=== PATIENT | female | born 1945 | race Caucasian/White ===

== ENCOUNTER → 2016-04-12 | Outpatient (CLI) | payer MEDICARE ==
--- NOTE | 2016-04-14 08:13 | MM ---
Reason for exam: screening (asymptomatic). Last mammogram was performed 1 year ago. History: Patient is postmenopausal and has history of endometrial cancer at age 51. Family history of breast cancer in 2 maternal aunts, breast cancer in daughter at age 50, and breast cancer in maternal aunt at age 50. Physical Findings: A clinical breast exam by your physician is recommended on an annual basis and results should be correlated with mammographic findings. MG 3D Screening Mammo W/Cad Bilateral CC and MLO view(s) were taken. Prior study comparison: April 09, 2015, bilateral MG 3d screening mammo w/cad. September 03, 2014, right breast MG diagnostic mammo RT w CAD. February 06, 2014, bilateral MG screening mammo w CAD. February 05, 2013, bilateral digital screening mammo w/CAD. There are scattered fibroglandular densities. Nodularity upper outer quadrant right breast larger and new from older priors. ASSESSMENT: Incomplete: need additional imaging evaluation, BI-RAD 0 RECOMMENDATION: Special view mammogram and ultrasound of the right breast. [facility] will attempt to contact patient to return for supplemental views and ultrasound.
== END | disposition home or self-care (01) ==
LOC: RADMAMWWP 13:49
PROVIDERS: ATTEND Family Medicine
DX: Z12.31 Encounter for screening mammogram for malignant neoplasm of breast (principal); R92.2 Inconclusive mammogram
CPT/HCPCS: 77063; G0202

== ENCOUNTER → 2016-04-24 | Outpatient (CLI) | payer MEDICARE ==
--- NOTE | 2016-04-24 14:31 | USB ---
Reason for exam: additional evaluation requested from abnormal screening. History: Patient is postmenopausal and has history of endometrial cancer at age 51. Family history of breast cancer in 2 maternal aunts, breast cancer in daughter at age 50, and breast cancer in maternal aunt at age 50. US Breast Workup Limited RT Right breast ultrasound demonstrates a 0.5 x 0.4 x 0.5cm oval lesion too small to characterize at 10 o'clock. These results were verbally communicated with the patient and result sheet given to the patient on 04/24/16. ASSESSMENT: Probably benign, BI-RAD 3 RECOMMENDATION: Follow-up diagnostic mammogram of the right breast in 6 months.
--- NOTE | 2016-04-25 11:28 | MM ---
Reason for exam: additional evaluation requested from abnormal screening. Last mammogram was performed less than 1 month ago. History: Patient is postmenopausal and has history of endometrial cancer at age 51. Family history of breast cancer in 2 maternal aunts, breast cancer in daughter at age 50, and breast cancer in maternal aunt at age 50. Physical Findings: Nurse did not find any significant physical abnormalities on exam. MG 3D Work Up W/Cad RT LM view(s) were taken of the right breast. Prior study comparison: April 12, 2016, bilateral MG 3d screening mammo w/cad. April 09, 2015, bilateral MG 3d screening mammo w/cad. Finding: There is a persistant 4 mm equal density (isodense), indistinct round mass in the right breast. No significant changes in finding. These results were verbally communicated with the patient and result sheet given to the patient on 04/24/16. ASSESSMENT: Incomplete: need additional imaging evaluation, BI-RAD 0 RECOMMENDATION: Ultrasound of the right breast.
== END | disposition home or self-care (01) ==
LOC: RADMAMWWP 13:30
PROVIDERS: ATTEND Family Medicine
DX: R92.8 Other abnormal and inconclusive findings on diagnostic imaging of breast (principal)
CPT/HCPCS: 76642; G0206; G0279

== ENCOUNTER → 2016-11-14 | Outpatient (CLI) | payer MEDICARE ==
--- NOTE | 2016-11-14 13:14 | MM ---
Reason for exam: follow-up at short interval from prior study. Last mammogram was performed 7 months ago. History: Patient is postmenopausal and has history of endometrial cancer at age 51. Family history of breast cancer in 2 maternal aunts, breast cancer in daughter at age 50, and breast cancer in maternal aunt at age 50. Physical Findings: Nurse did not find any significant physical abnormalities on exam. MG 3D Diag Mammo W/Cad RT CC and MLO view(s) were taken of the right breast. Prior study comparison: April 24, 2016, right breast MG 3d work up w/cad RT. April 12, 2016, bilateral MG 3d screening mammo w/cad. The breast tissue is almost entirely fat. Nodule persists in the right breast upper outer quadrant 6.6cm from nipple. This finding is changed when compared with previous exams. These results were verbally communicated with the patient and result sheet given to the patient on 11/14/16. ASSESSMENT: Incomplete: need additional imaging evaluation, BI-RAD 0 RECOMMENDATION: Ultrasound of the right breast.
--- NOTE | 2016-11-14 13:16 | USB ---
Reason for exam: additional evaluation requested from abnormal screening. History: Patient is postmenopausal and has history of endometrial cancer at age 51. Family history of breast cancer in 2 maternal aunts, breast cancer in daughter at age 50, and breast cancer in maternal aunt at age 50. US Breast Limited RT Right breast ultrasound demonstrates a 6 x 5 x 5mm oval, solid, hypoechoic lesion at 11 o'clock. These results were verbally communicated with the patient and result sheet given to the patient on 11/14/16. ASSESSMENT: Suspicious, BI-RAD 4 RECOMMENDATION: Ultrasound core biopsy of the right breast. (11 o'clock) Called Dr. Ruby with mammographic findings and has scheduled an appointment for the patient for 12/07/16 at 10:[address] Wood. Biopsy scheduled for 11/20/16 at 8:00. PRELIMINARY REPORT CALLED AND FAXED TO DR. WOOD ON 11/14/16 /TP.
== END | disposition home or self-care (01) ==
LOC: RADMAMWWP 10:51
PROVIDERS: ATTEND Family Medicine
DX: R92.8 Other abnormal and inconclusive findings on diagnostic imaging of breast (principal)
CPT/HCPCS: 76642; G0206; G0279

== ENCOUNTER → 2016-11-20 | Day surgery (SDC) | payer MEDICARE ==
--- NOTE | 2016-11-20 08:55 | USB ---
EXAMINATION TYPE: US biopsy breast VAD RT DATE OF EXAM: 11/20/2016 CLINICAL HISTORY: R92.8 ABNORMAL MAMMOGRAM. TECHNIQUE: Ultrasound guided core biopsy of right breast. COMPARISON: Ultrasound 11/14/2016 FINDINGS: The procedure of ultrasound guided core biopsy was explained to the patient. Benefits, alternatives, and risks were discussed. An informed consent was then obtained. The patient was placed in supine positioning for imaging and for the procedure. The overlying skin was prepped and draped in usual sterile fashion. Lidocaine was used as anesthetic into the skin and subcutaneous tissue up to area of concern in the right breast. A anna was made with surgical scalpel. Under ultrasound guidance, a 12-gauge vacuum assisted biopsy gun device was used to obtain 5 core samples. Following this, a biopsy clip was left in lesion. The patient tolerated the procedure well without any immediate complication. The patient was kept in the radiology department for short stay after the procedure and then discharged home in stable condition. IMPRESSION: Successful, uncomplicated ultrasound guided core biopsy of area of concern in the right breast, full pathology results to follow. Pathology Results: High Risk BREAST, RIGHT, CORE BIOPSY: FOCAL ATYPICAL DUCTAL HYPERPLASIA (ADH). PROLIFERATIVE FIBROCYSTIC CHANGES INCLUDING SCLEROSING ADENOSIS, USUAL TYPE DUCTAL HYPERPLASIA, AND FOCAL FAT NECROSIS WITH FIBROSIS AND CALCIFICATIONS. SEE NOTE. Recommendation Surgical consult of the right breast. GERTRUDE
--- NOTE | 2016-11-20 08:57 | MM ---
EXAMINATION TYPE: MG diagnostic mammo RT wo CAD DATE OF EXAM: 11/20/2016 COMPARISON: 09/03/2014, 11/14/2016 HISTORY: Abnormal mammogram TECHNIQUE: 2 view right breast postultrasound biopsy FINDINGS: Clip is in place within the right breast in the upper outer anterior aspect. IMPRESSION: 1. Successful clip placement for ultrasound-guided core biopsy. Recommendations: 1. Recommendations are pending pathology results.
[2016-11-22 08:53] VITALS: RESP 16; BMI 41.5
[2016-11-22 09:01] VITALS: BP 129/64; PULSE 71; TEMP 98.3
== END ==
LOC: RADUSWWP 06:58
PROVIDERS: ATTEND Surgery
DX: N60.91 Unspecified benign mammary dysplasia of right breast (principal); R92.8 Other abnormal and inconclusive findings on diagnostic imaging of breast; R92.0 Mammographic microcalcification found on diagnostic imaging of breast; N60.21 Fibroadenosis of right breast; Z85.42 Personal history of malignant neoplasm of other parts of uterus; N60.31 Fibrosclerosis of right breast
CPT/HCPCS: 88305; 88342; 19083; G0206; A4648; J2001

== ENCOUNTER → 2017-05-14 | Day surgery (SDC) | payer MEDICARE ==
[2017-05-07 09:55] VITALS: BMI 39.8
[~2017-05-14] MED LIST: ALPRAZolam 0.25 MG TAB PO STA; BUPIVACAINE (PF) 0.25% 30 ML VIAL SQ ONE; HEPARIN SODIUM,PORCINE 5,000 UNIT/ML 1 ML VIAL SQ ONE; HYDROcodone/APAP 5-325MG 1 EACH TAB PO PRN; HYDROmorphone 0.5 MG/0.5 ML SYRINGE IVP PRN; LACTATED RINGERS 1,000 ML IV SCH; LIDOCAINE 1% 20 ML VIAL (10MG/ML) FOR IV START INTRADERMA PRN; LIDOCAINE 1% INJ 10MG/ML (20 ML MDV) ONE; LIDOCAINE 1% INJ 10MG/ML (20 ML MDV) SQ ONE; MIDAZOLAM 2 MG/2 ML VIAL ONE; NALOXONE 0.4 MG/ML 1 ML VIAL IV PRN; ONDANSETRON 4 MG/2 ML VIAL IVP ONE; PROPOFOL 10 MG/ML 20 ML VIAL IV ONE; Pre Op ABX Message 1 EACH MISC MISCELLANE ONE; SODIUM BICARB 4% 5 ML VIAL (0.48 MEQ/ML) MISCELLANE ONE; fentaNYL (PF) 50 MCG/ML 2 ML AMP ONE
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
[2017-05-14 09:32] LABS: Glucose,Whole Blood 130 mg/dL (75-99)
[2017-05-14 09:38] VITALS: RESP 16; TEMP 97.8
--- NOTE | 2017-05-14 12:30 | P.OP ---
Date of Procedure: 05/14/17 Procedure(s) Performed: PREOPERATIVE DIAGNOSIS: Abnormal right mammogram POSTOPERATIVE DIAGNOSIS: Same PROCEDURE: Right Breast wire localization biopsy SURGEON: Nina EBL: Minimal ANESTHESIA: Sedation plus local COMPLICATIONS: None OPERATIVE PROCEDURE: Patient was placed on the operating room table in the supine position. The patient's breast was prepped and draped in usual sterile fashion. A curvilinear incision was made adjacent to the wire entrance site. I followed the wire down into the breast tissue. The breast tissue around the tip of the wire was fully excised using electrocautery. The specimen was sent for specimen radiogram. The clip was present within the specimen. The subcutaneous tissues were inspected. No bleeding was seen. The subcutaneous tissues were closed using 3-0 Vicryl sutures. The skin was closed using a running 4-0 Monocryl stitch. Steri-Strips and sterile dressings were applied. DISPOSITION: Stable to recovery room
[2017-05-14 12:50] LABS: Glucose,Whole Blood 149 mg/dL (75-99)
[2017-05-14 12:52] VITALS: BP 165/87; PULSE 60
--- NOTE | 2017-05-14 18:15 | MM ---
EXAMINATION TYPE: MG pre op needle loc RT, MG surgical specimen RT DATE OF EXAM: 05/14/2017 COMPARISON: 11/20/2016 CLINICAL HISTORY: 71-year-old female referred for wire placement for excision of biopsy-proven ADH in the right breast. TECHNIQUE: Needle localization with wire placement and surgical excision of area of concern in the right breast. FINDINGS: The procedure of needle localization with wire placement and than surgical excision was explained to the patient. Benefits, alternatives, and risks were discussed. An informed consent was then obtained. The shortest pathway for procedure was chosen. Shortest pathway was a superior approach. The overlying skin was prepped and draped in usual sterile fashion. Lidocaine buffered with bicarbonate was used as anesthetic into the skin and subcutaneous tissue up to the level of area of concern. A 5 cm Kopan's needle was used. It was placed via a CC from above approach under mammographic guidance. Subsequent 90 degrees mammogram show the needle to be in satisfactory position relative to the targeted area. At this point, wire was placed and the needle was withdrawn. The wire was fixed to patient's skin. Images were marked for surgeon. The patient tolerated the procedure well without any immediate complication. The patient was kept in the radiology department for short stay after the procedure and then taken to surgery for surgical excision. The wire, microclip, and incidental 2 groups of additional microcalcifications are identified in specimen mammogram. The patient was kept in hospital for short stay after the procedure and then discharged home in stable condition. IMPRESSION: Successful, uncomplicated needle localization with wire placement and surgical excision of biopsy-proven ADH in the right breast, full pathology results to follow. Pathology Results: Malignant BREAST, RIGHT, NEEDLE LOCALIZATION EXCISION: DUCTAL CARCINOMA IN SITU (DCIS) FOCALLY INVOLVING THE RESECTION MARGIN. SEE SURGICAL PATHOLOGY CANCER CASE SUMMARY AND COMMENT. Recommendation Surgical consult of the right breast. GERTRUDE
== END ==
LOC: OR 08:34
PROVIDERS: ATTEND Surgery
DX: D05.11 Intraductal carcinoma in situ of right breast (principal); Z80.3 Family history of malignant neoplasm of breast; K21.9 Gastro-esophageal reflux disease without esophagitis; E78.5 Hyperlipidemia, unspecified; I10 Essential (primary) hypertension; M19.90 Unspecified osteoarthritis, unspecified site; N28.9 Disorder of kidney and ureter, unspecified; E11.42 Type 2 diabetes mellitus with diabetic polyneuropathy; M10.9 Gout, unspecified; J30.2 Other seasonal allergic rhinitis; D64.9 Anemia, unspecified; Z85.42 Personal history of malignant neoplasm of other parts of uterus; Z92.3 Personal history of irradiation; Z79.84 Long term (current) use of oral hypoglycemic drugs; Z79.82 Long term (current) use of aspirin; Z79.899 Other long term (current) drug therapy; Z88.5 Allergy status to narcotic agent; Z87.891 Personal history of nicotine dependence
CPT/HCPCS: 19125; 88342; 88307; 88341; 76098; 19281; J2250; J1644; J2405; J2001; J3010; J2704

== ENCOUNTER 2017-06-08 08:47 | Day surgery (SDC) | payer MEDICARE ==
[2017-06-06 13:07] VITALS: BMI 41.1
[~2017-06-08 08:47] MED LIST changes: -ALPRAZolam 0.25 MG TAB PO STA; -BUPIVACAINE (PF) 0.25% 30 ML VIAL SQ ONE; +DEXAMETHASONE SOD PHOSPHATE 10 MG/ML 1 ML VIAL IV ONE; -HYDROcodone/APAP 5-325MG 1 EACH TAB PO PRN; -HYDROmorphone 0.5 MG/0.5 ML SYRINGE IVP PRN; -LIDOCAINE 1% 20 ML VIAL (10MG/ML) FOR IV START INTRADERMA PRN; -LIDOCAINE 1% INJ 10MG/ML (20 ML MDV) ONE; -LIDOCAINE 1% INJ 10MG/ML (20 ML MDV) SQ ONE; +MIDAZOLAM 2 MG/2 ML VIAL IV PRN; -MIDAZOLAM 2 MG/2 ML VIAL ONE; +MORPHINE SULFATE 4 MG/ML SYRINGE IV PRN; -NALOXONE 0.4 MG/ML 1 ML VIAL IV PRN; -PROPOFOL 10 MG/ML 20 ML VIAL IV ONE; -SODIUM BICARB 4% 5 ML VIAL (0.48 MEQ/ML) MISCELLANE ONE; -fentaNYL (PF) 50 MCG/ML 2 ML AMP ONE
[2017-06-08 10:09] LABS: Glucose,Whole Blood 111 mg/dL (75-99)
[2017-06-08] MEDS ORDERED: LIDOCAINE 1% 20 ML VIAL (10MG/ML) FOR IV START INTRADERMA ONE (10:25)
[2017-06-08 10:31] LABS: Anisocytosis Slight; HCT 39.1 % (34.0-46.0); HGB 13.1 gm/dL (11.4-16.0); MCH 29.4 pg (25.0-35.0); MCHC 33.5 g/dL (31.0-37.0); Mean Platelet Volume 9.8; Platelet Count 195 k/uL (150-450); RBC 4.47 m/uL (3.80-5.40); RDW 16.4 % (11.5-15.5); WBC 11.6 k/uL (3.8-10.6)
[2017-06-08 10:36] LABS: MCV 87.7 fL (80.0-100.0)
[2017-06-08 10:39] LABS: Potassium 4.1 mmol/L (3.5-5.1)
[2017-06-08] MEDS ORDERED: SUCCINYLCHOLINE CHLORIDE 100 MG/5 ML SYR IV ONE (10:51)
[2017-06-08] MEDS ORDERED: LIDOCAINE 1% INJ 10MG/ML (20 ML MDV) ONE (10:51)
[2017-06-08] MEDS ORDERED: fentaNYL (PF) 50 MCG/ML 2 ML AMP ONE (10:51)
[2017-06-08] MEDS ORDERED: PROPOFOL 10 MG/ML 20 ML VIAL IV ONE (10:51)
[2017-06-08] MEDS ORDERED: MIDAZOLAM 2 MG/2 ML VIAL ONE (10:51)
[2017-06-08] MEDS ORDERED: BUPIVACAINE (PF) 0.25% 30 ML VIAL SQ ONE ×2 (11:03)
[2017-06-08] MEDS ORDERED: SODIUM CHLORIDE 0.9% 150 ML with ceFAZolin 3,000 MG IV ONE ×2 (11:14)
[2017-06-08 11:57] VITALS: TEMP 97.2
[2017-06-08] MEDS ORDERED: NALOXONE 0.4 MG/ML 1 ML VIAL IV PRN (12:01)
--- NOTE | 2017-06-08 12:03 | P.OP ---
Date of Procedure: 06/08/17 Procedure(s) Performed: PREOPERATIVE DIAGNOSIS: Right breast cancer POSTOPERATIVE DIAGNOSIS: Same PROCEDURE: Right Breast lumpectomy SURGEON: Nina EBL: Minimal ANESTHESIA: General COMPLICATIONS: None OPERATIVE PROCEDURE: Patient was placed on the operating room table in the supine position. The breast was prepped and draped in usual sterile fashion. The previous incision at the 9 to 10:00 location was re-excise and dissection through the subcutaneous tissues of the breast took place using electrocautery. The previous lumpectomy site was fully excised with a margin of approximately 1 cm circumferentially. At one location inferior and laterally I did enter into the seroma cavity. The specimen was painted the appropriate colors. The subcutaneous tissues were closed using 3-0 Vicryl sutures. The skin was closed using a running 4-0 Monocryl stitch. Steri-Strips and sterile dressings were applied. DISPOSITION: Stable to recovery room
[2017-06-08 12:20] LABS: Glucose,Whole Blood 130 mg/dL (75-99)
[2017-06-08 12:48] VITALS: RESP 18
[2017-06-08 13:05] VITALS: BP 128/72; PULSE 80
== END 2017-06-08 13:24 | disposition home or self-care (01) ==
LOC: OR 08:47
PROVIDERS: ATTEND Surgery
DX: C50.411 Malignant neoplasm of upper-outer quadrant of right female breast (principal); I10 Essential (primary) hypertension; E11.9 Type 2 diabetes mellitus without complications; N28.9 Disorder of kidney and ureter, unspecified; R94.31 Abnormal electrocardiogram [ECG] [EKG]; E78.5 Hyperlipidemia, unspecified; G47.33 Obstructive sleep apnea (adult) (pediatric); Z99.89 Dependence on other enabling machines and devices; M10.9 Gout, unspecified; K21.9 Gastro-esophageal reflux disease without esophagitis; Z79.84 Long term (current) use of oral hypoglycemic drugs; Z79.82 Long term (current) use of aspirin; Z79.891 Long term (current) use of opiate analgesic; Z79.899 Other long term (current) drug therapy; Z79.2 Long term (current) use of antibiotics; Z88.5 Allergy status to narcotic agent; Z98.84 Bariatric surgery status
CPT/HCPCS: 19301; 82565; 84132; 84520; 85027; 88342; 88307; 88341; J2250; J1644; J1100; J2405; J2001; J3010; J0690; J0330; J2704

== ENCOUNTER → 2017-10-08 | Outpatient (CLI) | payer MEDICARE ==
[2017-10-08 15:14] LABS: Anisocytosis Slight; Basophils # (A) 0.1 k/uL (0-0.2); Basophils % (A) 1 %; Eosinophils # (A) 0.3 k/uL (0-0.7); Eosinophils % (A) 4 %; HCT 42.1 % (34.0-46.0); HGB 13.4 gm/dL (11.4-16.0); Hypochromasia Slight; Lymphocytes # (A) 1.2 k/uL (1.0-4.8); Lymphocytes % (A) 13 %; MCH 28.9 pg (25.0-35.0); MCHC 31.9 g/dL (31.0-37.0); MCV 90.6 fL (80.0-100.0); Mean Platelet Volume 8.9; Monocytes # (A) 0.6 k/uL (0-1.0); Monocytes % (A) 7 %; Neutrophils # (A) 6.8 k/uL (1.3-7.7); Neutrophils % (A) 74 %; Platelet Count 196 k/uL (150-450); RBC 4.64 m/uL (3.80-5.40); RDW 16.8 % (11.5-15.5); WBC 9.1 k/uL (3.8-10.6)
[2017-10-08 15:26] LABS: Albumin 3.7 g/dL (3.5-5.0); Calcium 9.7 mg/dL (8.4-10.2); Potassium 5.3 mmol/L (3.5-5.1); Total Bilirubin 0.3 mg/dL (0.2-1.3); Total Protein 6.8 g/dL (6.3-8.2)
[2017-10-09 01:27] LABS: Cyclic Citrullinated Pep IgG NEGATIVE (NEGATIVE)
[2017-10-09 02:53] LABS: HIV AB P24 Non-Reactive (Non-Reactive); HIV P24 AG Non-Reactive (Non-Reactive)
[2017-10-09 04:36] LABS: Angiotensin-1 Converting Enz. 94 U/L (8-52)
[2017-10-09 06:48] LABS: Toxoplasma Antibody (IgG) <3.0 IU/mL (<7.2); Toxoplasma Antibody (IgM) <3.0 AU/mL (<8.0)
[2017-10-09 12:32] LABS: APTT 42 Sec(s) (<43); Dilute Russell Viper Venom 44 Sec(s) (<44)
== END | disposition home or self-care (01) ==
LOC: LABWHC1 13:42
PROVIDERS: ATTEND Ophthalmology Retina Specialist
DX: H20.019 Primary iridocyclitis, unspecified eye (principal)
CPT/HCPCS: 36415; 80053; 82164; 85025; 85549; 85613; 85730; 86200; 86480; 86682; 86777; 86778; 86780; 87390

== ENCOUNTER → 2017-11-08 | Outpatient (CLI) | payer MEDICARE ==
--- NOTE | 2017-11-08 14:52 | CT ---
EXAMINATION TYPE: CT chest wo con DATE OF EXAM: 11/08/2017 COMPARISON: 06/05/2011 HISTORY: Pneumonitis. CT DLP: 668.5 mGycm. Automated Exposure Control for Dose Reduction was Utilized. TECHNIQUE: CT scan of the thorax is performed without IV contrast. FINDINGS: LUNGS: There is mild background centrilobular emphysematous change. Within the right upper lobe there is an approximately 2.3 cm pulmonary mass containing calcifications and macroscopic fat, similar to the prior of 2011 where this measured 2.2 cm most compatible with a benign hamartoma. Additionally th ere is a similar appearing right middle lobe 9 mm nodule in comparison to exam of 2012. Therefore thi s should also be considered benign. Lingular bronchiectasis and pleural parenchymal scarring are note d, which is most commonly postinfectious. Multifocal pleural parenchymal scarring is present. No foca l consolidation is seen. The tracheobronchial tree is patent. MEDIASTINUM: Lack of IV contrast is noted to limit evaluation for mediastinal and especially hilar ad enopathy. There are no definitive greater than 1 cm hilar or mediastinal lymph nodes. No cardiomega ly or pericardial effusion is seen. Ascending thoracic aorta is upper limits of normal measuring 4.0 cm on series 6 image 43. Moderate coronary artery and thoracic aortic calcifications are seen. OTHER: Right breast surgical excision changes are partially visualized. Gastric lap band with small h iatal hernia is noted. Left renal atrophy and nonobstructing lower pole calculus as well as mild panc reatic parenchymal atrophy are also present. Multilevel moderate degenerative changes of the spine ar e seen. Old healed sternal fracture is present of the sternal body. Degenerative articulation of the left transverse process with a left mid rib is seen on series 3 image 25. IMPRESSION: 1. Mild centrilobular emphysema. 2. Overall stable right pulmonary nodules dating back to 2011 the larger compatible with a benign ham artoma and the smaller given its stability should also be considered benign. 3. Lingular bronchiectasis and bandlike linear scarring, likely postinfectious. No obstructing endobr onchial masses seen. If there is further clinical concern bronchoscopy could be performed. 4. Postoperative changes of a right breast surgical excision/lumpectomy.
== END | disposition home or self-care (01) ==
LOC: RADCTMAIN 13:50
PROVIDERS: ATTEND Internal Medicine Rheumatology
DX: J43.2 Centrilobular emphysema (principal); R91.8 Other nonspecific abnormal finding of lung field; J47.9 Bronchiectasis, uncomplicated; J98.4 Other disorders of lung
CPT/HCPCS: 71250

== ENCOUNTER → 2017-11-15 | Outpatient (CLI) | payer MEDICARE ==
--- NOTE | 2017-11-15 14:03 | MM ---
Reason for exam: additional evaluation requested from prior study. Last mammogram was performed 1 year ago. History: Patient is postmenopausal, has history of breast cancer at age 71, has history of high-risk lesion on a previous biopsy at age 71, and has history of endometrial cancer at age 51. Family history of breast cancer in 2 maternal aunts, breast cancer in daughter at age 50, and breast cancer in maternal aunt at age 50. Lumpectomy of the right breast, June 08, 2017. 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 High risk US biopsy breast VAD RT of the right breast, November 20, 2016. Taking antineoplastic for 5 months. Physical Findings: Nurse did not find any significant physical abnormalities on exam. MG 3D Diag Mammo W/Cad JADIEL Bilateral CC and MLO view(s) were taken. Prior study comparison: November 20, 2016, right breast MG diagnostic mammo RT wo CAD. November 14, 2016, right breast MG 3d diag mammo w/cad RT. April 12, 2016, bilateral MG 3d screening mammo w/cad. There are scattered fibroglandular densities. There ar benign appearing bilateral calcifications. No suspicious abnormality. Post therapy changes on the right. These results were verbally communicated with the patient and result sheet given to the patient on 11/15/17. ASSESSMENT: Benign, BI-RAD 2 RECOMMENDATION: Follow-up diagnostic mammogram of both breasts in 1 year.
== END | disposition home or self-care (01) ==
LOC: RADMAMWWP 12:38
PROVIDERS: ATTEND Radiology Radiation Oncology
DX: C50.411 Malignant neoplasm of upper-outer quadrant of right female breast (principal)
CPT/HCPCS: 77066; G0279; 77062

== ENCOUNTER → 2017-12-18 | Outpatient (CLI) | payer MEDICARE ==
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
== END | disposition home or self-care (01) ==
LOC: RADBDWWP 12:53
PROVIDERS: ATTEND Internal Medicine Hematology & Oncology
DX: M85.80 Other specified disorders of bone density and structure, unspecified site (principal); C50.411 Malignant neoplasm of upper-outer quadrant of right female breast; N95.1 Menopausal and female climacteric states; Z79.890 Hormone replacement therapy; Z88.5 Allergy status to narcotic agent
CPT/HCPCS: 77080

== ENCOUNTER 2018-01-28 17:10 | Emergency (ER) | payer MEDICARE ==
[2018-01-28 17:20] VITALS: RESP 18
[2018-01-28] MEDS ORDERED: HYDROmorphone 1 MG/ML 1 ML SYRINGE IM STA (18:09)
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
--- NOTE | 2018-01-28 20:09 | XR ---
PROCEDURE: XR shoulder complete LT 3V DATE AND TIME: 01/28/2018 6:31 PM CLINICAL INDICATION: Pain TECHNIQUE: Department protocol. 3V COMPARISON: None FINDINGS: There is a displaced left humeral neck fracture with the humeral shaft displaced anteriorly and inferiorly medially. The humeral head appears rotated, but remains seated within the glenoid fossa. The acromioclavicular joint is congruent. Remaining visualized structures are unremarkable. IMPRESSION: DISPLACED LEFT HUMERAL NECK FRACTURE.
[2018-01-28 20:55] VITALS: BP 137/71; PULSE 88; TEMP 98.1
== END 2018-01-28 20:50 | disposition home or self-care (01) ==
LOC: EC 17:10
DX: S42.292A Other displaced fracture of upper end of left humerus, initial encounter for closed fracture (principal); E11.40 Type 2 diabetes mellitus with diabetic neuropathy, unspecified; K21.9 Gastro-esophageal reflux disease without esophagitis; E78.5 Hyperlipidemia, unspecified; I10 Essential (primary) hypertension; M19.90 Unspecified osteoarthritis, unspecified site; D64.9 Anemia, unspecified; M10.9 Gout, unspecified; Z85.42 Personal history of malignant neoplasm of other parts of uterus; Z87.891 Personal history of nicotine dependence; Z79.84 Long term (current) use of oral hypoglycemic drugs; Z79.82 Long term (current) use of aspirin; Z79.899 Other long term (current) drug therapy; Z88.5 Allergy status to narcotic agent; Z96.653 Presence of artificial knee joint, bilateral; W19.XXXA Unspecified fall, initial encounter
CPT/HCPCS: 73030; 99283; 96372; J1170

== ENCOUNTER → 2018-12-20 | Outpatient (CLI) | payer MEDICARE ==
--- NOTE | 2018-12-20 13:33 | MM ---
Reason for exam: additional evaluation requested from prior study. Last mammogram was performed 1 year and 1 month ago. History: Patient is postmenopausal, has history of breast cancer at age 71, has history of high-risk lesion on a previous biopsy at age 71, and has history of endometrial cancer at age 51. Family history of breast cancer in 2 maternal aunts at age 70, breast cancer in daughter at age 50, and breast cancer in maternal aunt at age 50. Lumpectomy of the right breast, June 08, 2017. 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 High risk US biopsy breast VAD RT of the right breast, November 20, 2016. Taking antineoplastic for 1 year 6 months. Physical Findings: Nurse did not find any significant physical abnormalities on exam. MG 3D Diag Mammo W/Cad JADIEL Bilateral CC and MLO view(s) were taken. XCCL view(s) were taken of the left breast. Prior study comparison: November 15, 2017, bilateral MG 3d diag mammo w/cad JADIEL. November 20, 2016, right breast MG diagnostic mammo RT wo CAD. There are scattered fibroglandular densities. Finding: There is an intermediate concern, suspicious 21 mm high density, indistinct mass located 6 cm from the nipple in the middle position of the right breast. New finding since November 15, 2017 and November 20, 2016. These results were verbally communicated with the patient and result sheet given to the patient on 12/20/18. ASSESSMENT: Incomplete: need additional imaging evaluation, BI-RAD 0 RECOMMENDATION: Ultrasound of the right breast.
--- NOTE | 2018-12-20 13:39 | USB ---
Reason for exam: additional evaluation requested from abnormal screening. History: Patient is postmenopausal, has history of breast cancer at age 71, has history of high-risk lesion on a previous biopsy at age 71, and has history of endometrial cancer at age 51. Family history of breast cancer in 2 maternal aunts at age 70, breast cancer in daughter at age 50, and breast cancer in maternal aunt at age 50. Lumpectomy of the right breast, June 08, 2017. 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 High risk US biopsy breast VAD RT of the right breast, November 20, 2016. Taking antineoplastic for 1 year 6 months. US Breast Limited RT Right limited breast ultrasound including focal area of concern, retroareolar and axilla demonstrates a 2.3 x 2.3 x 1.7cm oval, cystic, complex lesion at 10 o'clock, a 0.8 x 0.6 x 0.7cm oval, thick walled lesion at 10:30 and a 1.8 x 1.1 x 1.3cm oval axilla node. These are adjacent. Core smaller lesion, can core/aspirate larger lesion at same time. These results were verbally communicated with the patient and result sheet given to the patient on 12/20/18. ASSESSMENT: Suspicious, BI-RAD 4 RECOMMENDATION: Aspiration and ultrasound core biopsy of the right breast. Called Dr. Monk with mammographic findings and has scheduled an appointment for the patient for 02/06/19 at 9:[address] Wood. Biopsy scheduled for 01/10/19 at 11:30. PRELIMINARY REPORT CALLED AND FAXED TO DR. WOOD ON 12/20/18.
== END | disposition home or self-care (01) ==
LOC: RADMAMWWP 10:47
PROVIDERS: ATTEND Radiology Radiation Oncology
DX: C50.411 Malignant neoplasm of upper-outer quadrant of right female breast (principal); R92.8 Other abnormal and inconclusive findings on diagnostic imaging of breast; Z17.0 Estrogen receptor positive status [ER+]
CPT/HCPCS: 77066; 76642; G0279; 77062

== ENCOUNTER → 2019-01-06 | Day surgery (SDC) | payer MEDICARE ==
[2019-01-06 13:23] VITALS: RESP 16; BMI 37.8
[2019-01-06 14:24] VITALS: BP 130/75; PULSE 70; TEMP 97.7
--- NOTE | 2019-01-06 14:50 | USB ---
EXAMINATION TYPE: US biopsy breast VAD RT, MG diagnostic mammo RT wo CAD DATE OF EXAM: 01/06/2019 CLINICAL HISTORY: R92.8 Abnormal mammogram. TECHNIQUE: Ultrasound guided core biopsy of the right breast. COMPARISON: right breast ultrasound dated 12/20/2018 and mammograms dating back to 04/09/2015 FINDINGS: The procedure of ultrasound guided core biopsy was explained to the patient. Benefits, alternatives, and risks were discussed. An informed consent was then obtained. Preprocedural timeout was performed. The patient was placed in supine positioning for imaging and for the procedure. The overlying skin was prepped and draped in usual sterile fashion. 10 cc of 1% lidocaine was used as anesthetic into the skin and subcutaneous tissue up to a complex cystic mass at the 10:00 position in the right breast. Under ultrasound guidance, a 12-gauge vacuum assisted biopsy gun device was used to obtain 7 core samples. A wing shaped biopsy marker was attempted to be placed however this did not deploy as no marker is seen on postprocedural images. Post biopsy air is noted within the biopsy cavity on postprocedural mammogram. The patient tolerated the procedure well without any immediate complication. The patient was kept in the radiology department for short stay after the procedure and then discharged home in stable condition. IMPRESSION: Successful, uncomplicated ultrasound guided core biopsy of a complex cystic 2.3 cm mass at the 10:00 position, likely postsurgical seroma/evolving hematoma, full pathology results to follow. Pathology Results: Benign RIGHT BREAST, 10:00, ULTRASOUND GUIDED CORE BIOPSY: Scar with fat necrosis, histiocytes, chronic inflammation, fibrin and blood clot. Negative for malignancy. Recommendation Follow up mammogram of the right breast in 6 months. GERTRUDE
== END ==
LOC: RADUSWWP 13:00
PROVIDERS: ATTEND Surgery
DX: N60.01 Solitary cyst of right breast (principal); Z85.3 Personal history of malignant neoplasm of breast; Z85.42 Personal history of malignant neoplasm of other parts of uterus; Z80.9 Family history of malignant neoplasm, unspecified
CPT/HCPCS: 19083; 88305; 77065; A4648; J2001

== ENCOUNTER → 2019-03-18 | Outpatient (CLI) | payer MEDICARE ==
--- NOTE | 2019-03-18 15:58 | US ---
EXAMINATION TYPE: US kidneys/renal and bladder DATE OF EXAM: 03/18/2019 COMPARISON: US CLINICAL HISTORY: N18.3 Chronic kidney disease stage 3. EXAM MEASUREMENTS: Right Kidney: 13.5 x 5.1 x 4.7 cm Left Kidney: 11.2 x 3.4 x 4.6 cm Right Kidney: Cortical thinning. Diminished cortical medullary differentiation. Multiple hypoechoic subcentimeter lesions, likely small cysts. Left Kidney: Thinned cortex. Diminished cortical medullary differentiation. Multiple hypoechoic subce ntimeter lesions, likely small cysts. Lower pole calcification measures 1.3 x 0.6 x 1.1 cm. Bladder: wnl Bilateral Jets seen: No IMPRESSION: Sonographic sequela of medical renal disease. There are numerous bilateral subcentimeter hypoechoic lesions that most commonly represent small cysts. No greater than 1 cm lesion is seen. Add itionally there is a nonobstructing left renal calculus and no hydronephrosis of either kidney.
== END | disposition home or self-care (01) ==
LOC: RADUSWWP 15:12
PROVIDERS: ATTEND Internal Medicine Nephrology
DX: N20.0 Calculus of kidney (principal)
CPT/HCPCS: 76770

== ENCOUNTER → 2019-09-26 | Outpatient (CLI) | payer MEDICARE ==
--- NOTE | 2019-09-26 14:49 | MM ---
Reason for exam: follow-up at short interval from prior study. Last mammogram was performed 9 months ago. History: Patient is postmenopausal, has history of breast cancer at age 71, has history of high-risk lesion on a previous biopsy at age 71, and has history of endometrial cancer at age 51. Family history of breast cancer in 2 maternal aunts at age 70, breast cancer in daughter at age 50, and breast cancer in maternal aunt at age 50. Benign US biopsy breast VAD RT of the right breast, January 06, 2019. Lumpectomy of the right breast, June 08, 2017. 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 High risk US biopsy breast VAD RT of the right breast, November 20, 2016. Taking antineoplastic for 1 year 6 months. Physical Findings: Nurse did not find any significant physical abnormalities on exam. MG 3D Diag Mammo W/Cad RT CC and MLO view(s) were taken of the right breast. Prior study comparison: January 06, 2019, right breast MG diagnostic mammo RT wo CAD. December 20, 2018, bilateral MG 3d diag mammo w/cad JADIEL. There are scattered fibroglandular densities. Focal asymmetry. Spiculated margina upper outer quadrant right breast. These results were verbally communicated with the patient and result sheet given to the patient on 09/26/19. ASSESSMENT: Benign, BI-RAD 2 RECOMMENDATION: Follow-up diagnostic mammogram of both breasts in 4 months. Back on schedule.
== END | disposition home or self-care (01) ==
LOC: RADMAMWWP 13:43
PROVIDERS: ATTEND Radiology Radiation Oncology
DX: C50.411 Malignant neoplasm of upper-outer quadrant of right female breast (principal); Z17.0 Estrogen receptor positive status [ER+]
CPT/HCPCS: 77065; G0279; 77061

== ENCOUNTER 2019-10-27 20:19 | Inpatient (IN) | payer MEDICARE ==
[2019-10-27 20:29] LABS: Glucose,Whole Blood 204 mg/dL (75-99)
[2019-10-27] MEDS ORDERED: SODIUM CHLORIDE 0.9% 500 ML 500 ML IV STA (20:29)
[2019-10-27 20:42] LABS: Anisocytosis Slight; Basophils # (A) 0.1 k/uL (0-0.2); Basophils % (A) 1 %; Eosinophils # (A) 0.5 k/uL (0-0.7); Eosinophils % (A) 4 %; HCT 41.2 % (34.0-46.0); HGB 13.6 gm/dL (11.4-16.0); Lymphocytes # (A) 1.4 k/uL (1.0-4.8); Lymphocytes % (A) 9 %; MCH 30.3 pg (25.0-35.0); MCHC 32.9 g/dL (31.0-37.0); Mean Platelet Volume 9.9; Monocytes # (A) 0.6 k/uL (0-1.0); Monocytes % (A) 4 %; Neutrophils # (A) 11.7 k/uL (1.3-7.7); Neutrophils % (A) 81 %; Platelet Count 148 k/uL (150-450); RBC 4.47 m/uL (3.80-5.40); RDW 16.6 % (11.5-15.5); WBC 14.4 k/uL (3.8-10.6)
[2019-10-27 20:46] LABS: MCV 92.2 fL (80.0-100.0)
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
[2019-10-27 20:51] LABS: Partial Thromboplastin Time 23.4 sec (22.0-30.0); Prothrombin Time 10.2 sec (9.0-12.0)
--- NOTE | 2019-10-27 20:52 | CT ---
EXAMINATION TYPE: CT brain wo con for TPA DATE OF EXAM: 10/27/2019 COMPARISON: None HISTORY: Neuro deficit, acute, stroke suspected. CT DLP: 1102.8 mGycm Automated exposure control for dose reduction was used. Ventricles have normal size. There is no mass effect nor midline shift. There is no sign of intracran ial hemorrhage. There is hyperostosis frontalis. There is limited pneumatization of the right mastoid sinus. The calvarium is intact. There is no evidence of cerebral edema. There is some symmetric thalamic calcification. IMPRESSION: No acute intracranial abnormality. Negative exam.
[2019-10-27 20:53] LABS: Creatine Kinase 60 U/L (30-135)
[2019-10-27 20:55] LABS: Albumin 3.7 g/dL (3.5-5.0); Calcium 9.1 mg/dL (8.4-10.2); Total Bilirubin 0.6 mg/dL (0.2-1.3); Total Protein 6.9 g/dL (6.3-8.2)
[2019-10-27 21:06] LABS: Creatine Kinase MB 0.4 ng/mL (0.0-2.4); Troponin I <0.012 ng/mL (0.000-0.034)
--- NOTE | 2019-10-27 21:17 | CT ---
EXAMINATION TYPE: CT angio head neck DATE OF EXAM: 10/27/2019 COMPARISON: None HISTORY: Neuro deficit, acute, stroke suspected. CT DLP: 545.7 mGycm Automated exposure control for dose reduction was used. CONTRAST: Performed with IV Contrast, patient injected with 65 mL of Isovue 370. Images obtained from the aortic arch to the vertex of the brain with IV contrast and 3-D post process ed images. There is normal branching pattern of the great vessels on the aortic arch. There is arterial flow in both subclavian arteries. There is arterial flow in the common internal and external carotid arteries . There is mild plaque formation at the carotid artery bifurcations. Lumen narrowing is less than 10% . There is arterial flow in both vertebral arteries. There is arterial flow in the vertebrobasilar ar cornel system. There is no evidence of vertebral or carotid artery aneurysm or dissection. There is arterial flow in the anterior middle and posterior cerebral arteries. There is no mass effec t. There is no evidence of intracranial arterial stenosis. There is normal contrast opacification of the venous sinuses. I see no evidence of intracranial aneurysm or neovascularity. The posterior cereb ral arteries appear to fill mostly through the posterior communicating arteries. There is diminutive basilar artery. IMPRESSION: Negative CT angiogram of the neck. Negative CT angiogram of the brain.
[2019-10-27] MEDS ORDERED: ASPIRIN 81 MG PO STA (21:26)
[2019-10-27] MEDS ORDERED: NALOXONE 0.4 MG/ML 1 ML VIAL IV STA (21:29)
--- NOTE | 2019-10-27 21:50 | XR ---
EXAMINATION TYPE: XR chest 1V portable DATE OF EXAM: 10/27/2019 COMPARISON: 06/01/2011 HISTORY: Altered mental status TECHNIQUE: Single view FINDINGS: There is no heart failure nor confluent pneumonic infiltrate. There is mild coarsening of i nterstitial markings. There is 2.4 cm nodular density above the right pulmonary hilum. This appears s table compared to CT chest of 11/08/2017 and could be a granuloma. This contains small area of calcific ation on the old CT scan. IMPRESSION: Mild fibrotic changes. No definite acute lung disease. No adverse change compared to old exam.
[2019-10-27 22:38] LABS: Ionized Calcium 4.9 mg/dL (4.5-5.3)
[2019-10-27 22:42] LABS: Acetaminophen <10.0 ug/mL; Alcohol <10 mg/dL; Magnesium 1.7 mg/dL (1.6-2.3); Salicylate <1.0 mg/dL
[2019-10-27] MEDS ORDERED: cefTRIAXone IN SWFI 1,000 MG/10 ML SYRINGE IVP STA (23:06)
[2019-10-27 23:10] LABS: Appearance,Urine Turbid (Clear); Bacteria,Urine Moderate /hpf; Bilirubin,Urine Negative (Negative); Blood,Urine Moderate (Negative); Color,Urine Yellow; Glucose,Urine (UA) Negative (Negative); Ketones,Urine Negative (Negative); Leukocyte Esterase,Urine Large (Negative); Mucus,Urine Occasional /hpf; Nitrite,Urine Positive (Negative); Protein,Urine 2+ (Negative); Urobilinogen,Urine <2.0 mg/dL (<2.0)
[2019-10-27 23:18] LABS: Amphetamine Screen,Urine Not Detected (NotDetected); Barbiturate Screen,Urine Not Detected (NotDetected); Benzodiazepines Screen,Urine Not Detected (NotDetected); Cocaine Screen,Urine Not Detected (NotDetected); Methadone Screen, Urine Not Detected (NotDetected); Opiate Screen,Urine Detected (NotDetected); Oxycodone Screen, Urine Not Detected (NotDetected); Phencyclidine Screen,Urine Not Detected (NotDetected); Tricyclic Antidepressant,Urine Not Detected (NotDetected); Urn Cannabinoid Scrn Not Detected (NotDetected)
[2019-10-27 23:19] LABS: RBC,Urine 113 /hpf (0-5); Specific Gravity,Urine 1.016 (1.001-1.035); WBC,Urine >182 /hpf (0-5)
[2019-10-27] MEDS ORDERED: ACETAMINOPHEN TAB 325 MG TAB PO PRN (23:21)
[2019-10-27] MEDS ORDERED: ASPIRIN 600 MG SUPP RECTAL STA (23:28)
[2019-10-27] MEDS: SODIUM CHLORIDE 0.9% 1,000 ML IV SCH (23:39)
[2019-10-28] MEDS: SODIUM CHLORIDE 0.9% 1,000 ML IV SCH ×2 (09:01→19:52)
[2019-10-28] MEDS: PANTOPRAZOLE 40 MG/10 ML VIAL IV SCH (09:01)
[2019-10-28 17:20] LABS: Glucose,Whole Blood 177 mg/dL (75-99)
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
[2019-10-28] MEDS: INSULIN ASPART (NovoLOG) 100 UNIT/ML VIAL SQ SCH ×2 (18:54→20:55)
[2019-10-28 20:16] LABS: Glucose,Whole Blood 185 mg/dL (75-99)
[2019-10-28] MEDS ORDERED: MELATONIN 5 MG TABLET PO PRN (22:57)
[2019-10-28] MEDS: ATORVASTATIN 80 MG TAB PO SCH (23:36)
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
[2019-10-29] MEDS: SODIUM CHLORIDE 0.9% 1,000 ML IV SCH ×3 (02:58→21:17)
[2019-10-29 06:13] LABS: Glucose,Whole Blood 153 mg/dL (75-99)
[2019-10-29] MEDS: INSULIN ASPART (NovoLOG) 100 UNIT/ML VIAL SQ SCH ×4 (06:30→20:41)
[2019-10-29 06:52] LABS: Anisocytosis Slight; Basophils # (A) 0.1 k/uL (0-0.2); Basophils % (A) 1 %; Eosinophils # (A) 0.4 k/uL (0-0.7); Eosinophils % (A) 3 %; HCT 41.6 % (34.0-46.0); HGB 13.1 gm/dL (11.4-16.0); Hypochromasia Slight; Lymphocytes # (A) 1.1 k/uL (1.0-4.8); Lymphocytes % (A) 9 %; MCH 29.1 pg (25.0-35.0); MCHC 31.4 g/dL (31.0-37.0); MCV 92.6 fL (80.0-100.0); Mean Platelet Volume 11.3; Monocytes # (A) 0.5 k/uL (0-1.0); Monocytes % (A) 4 %; Neutrophils # (A) 10.6 k/uL (1.3-7.7); Neutrophils % (A) 82 %; Platelet Count 126 k/uL (150-450); RBC 4.49 m/uL (3.80-5.40); RDW 16.7 % (11.5-15.5); WBC 12.9 k/uL (3.8-10.6)
[2019-10-29 07:17] LABS: T4, Free (Free Thyroxine) 0.92 ng/dL (0.78-2.19)
[2019-10-29 07:18] LABS: Potassium 4.4 mmol/L (3.5-5.1)
[2019-10-29] MEDS: GLIMEPIRIDE 2 MG TAB PO SCH ×2 (09:18→20:39)
[2019-10-29] MEDS: atenoloL 25 MG TAB PO SCH (09:18)
[2019-10-29] MEDS: LOSARTAN 25 MG TAB PO SCH (09:18)
[2019-10-29] MEDS: amLODIPine 10 MG TAB PO SCH (09:18)
[2019-10-29] MEDS: allopurinoL 100 MG TAB PO SCH ×2 (09:18→20:38)
[2019-10-29] MEDS: PANTOPRAZOLE 40 MG/10 ML VIAL IV SCH (09:19)
[2019-10-29] MEDS: ASPIRIN 81 MG PO SCH (09:19)
[2019-10-29] MEDS: prednisoLONE ACETATE 1% OPHTH DROPS 5 ML BTL RIGHT EYE SCH (09:21)
[2019-10-29] MEDS: Exemestane [Aromasin] 25 MG PO SCH (09:22)
--- NOTE | 2019-10-29 10:00 | ECHOF ---
Referral Reason:TIA MEASUREMENTS -------- HEIGHT: 160.0 cm WEIGHT: 77.6 kg BP: 167/72 IVSd: 0.9 cm (0.6 - 1.1) LVIDd: 3.9 cm (3.9 - 5.3) LVPWd: 1.0 cm (0.6 - 1.1) IVSs: 1.2 cm LVIDs: 2.6 cm LVPWs: 1.3 cm Ao Diam: 3.2 cm (2.0 - 3.7) AV Cusp: 1.2 cm (1.5 - 2.6) LA Diam: 3.7 cm (2.7 - 3.8) MV E Mak: 0.79 m/s MV DecT: 134 ms MV A Mak: 0.34 m/s MV E/A Ratio: 2.30 RAP: 5.00 mmHg RVSP: 10.99 mmHg FINDINGS -------- Sinus rhythm. This was a technically difficult study with suboptimal views. The left ventricular size is normal. Left ventricular wall thickness is normal. Overall left vent ricular systolic function is normal with, an EF between 55 - 60 %. The RV was not well visualized. The left atrial size is normal. The right atrium was not well visualized. Lumason used Unable to visualize the septum. The aortic valve was not well visualized. The mitral valve was not well visualized. There is trace mitral regurgitation. The tricuspid valve appears structurally normal. Trace tricuspid regurgitation present. Right yuri tricular systolic pressure is normal at < 35 mmHg. There is no pulmonic regurgitation present. The aortic root size is normal. IVC Not well visulized. There is no pericardial effusion. CONCLUSIONS -------- 1. Left ventricular wall thickness is normal. 2. Overall left ventricular systolic function is normal with, an EF between 55 - 60 %. 3. There is trace mitral regurgitation. 4. Trace tricuspid regurgitation present. DESIGN PRINTER BALLOON: Prisca Randall RDCS
[2019-10-29 11:42] LABS: Glucose,Whole Blood 157 mg/dL (75-99)
--- NOTE | 2019-10-29 14:48 | P.PN ---
Subjective Progress Note Date: 10/29/19 Patient is laying comfortably in the bed. Offers no new complaints. Denies headache. Denies any new focal symptoms. Patient is alert and awake. Objective - Vital Signs Vital signs: Vital Signs Temp 98.6 F 10/29/19 09:10 Pulse 74 10/29/19 11:30 Resp 16 10/29/19 11:30 BP 157/80 10/29/19 11:30 Pulse Ox 98 10/29/19 11:30 Intake & Output 10/28/19 10/29/19 10/29/19 18:59 06:59 18:59 Intake Total 1610 1030 930 Output Total 1999 1680 Balance -390 -650 930 Weight 108.862 kg 78 kg Intake: IV 880 880 Sodium Chloride 0.9% 1, 880 880 000 ml @ 110 mls/hr IV . Q9H6M [facility] Rx#:[id number] Intake, IV Titration 1370 50 Amount Sodium Chloride 0.9% 1, 1320 000 ml @ 110 mls/hr IV . Q9H6M [facility] Rx#:[id number] cefTRIAXone 1 gm In 50 50 Sodium Chloride 0.9% 50 ml @ 100 mls/hr IVPB Q24HR [facility] Rx#:[id number] Oral 240 150 Output: Urine 19990 Other: Voiding Method Indwelling Catheter Indwelling Catheter Indwelling Catheter # Voids 1 # Bowel Movements 1 - Exam Patient is slightly somnolent but is alert and awake. Speech is mildly dysarthric, no aphasia. Cranial nerves examination revealed chronically decreased vision in the right eye. Her visual macias are full on the left, with no neglect. Right pupil is nonreactive, left pupil is reactive. Both pupils are surgical. Extraocular muscles grossly intact. Face is symmetric and tongue protrudes the midline. On muscle strength testing, patient has mild left pronation, no drift. The strength appears normal in the arms and legs distally and proximally. Both lower limbs are completely normal. Reflexes are diminished and patient has withdrawal plantar reflex bilaterally. No ataxia for [id number] on the right. On the left side, was slow, but no more past- pointing as compared to yesterday. Sensations are equal bilaterally, no neglect. Gait deferred. - Labs CBC & Chem 7: 10/29/19 06:20 10/29/19 06:20 Labs: Abnormal Lab Results - Last 24 Hours (Table) 10/28/19 10/28/19 10/29/19 Range/Units 17:18 20:14 06:10 WBC (3.8-10.6) k/uL RDW (11.5-15.5) % Plt Count (150-450) k/uL Neutrophils # (1.3-7.7) k/uL Chloride (98-107) mmol/L Glucose (74-99) mg/dL POC Glucose (mg/dL) 177 H 185 H 153 H (75-99) mg/dL Triglycerides (<150) mg/dL HDL Cholesterol (40-60) mg/dL 10/29/19 10/29/19 10/29/19 Range/Units 06:20 06:20 11:39 WBC 12.9 H (3.8-10.6) k/uL RDW 16.7 H (11.5-15.5) % Plt Count 126 L (150-450) k/uL Neutrophils # 10.6 H (1.3-7.7) k/uL Chloride 109 H (98-107) mmol/L Glucose 160 H (74-99) mg/dL POC Glucose (mg/dL) 157 H (75-99) mg/dL Triglycerides 173 H (<150) mg/dL HDL Cholesterol 30 L (40-60) mg/dL Microbiology - Last 24 Hours (Table) 10/27/19 22:54 Blood Culture - Preliminary Blood No Growth after 24 hours 10/28/19 12:15 Urine Culture - Preliminary Urine,Catheterized Assessment and Plan Assessment: * Acute ischemic stroke bilateral thalami, extending to left mid brain region. Possible thromboembolism. No obvious embolic source identified. * Hypertension * Diabetes * X tobacco use * Obesity Plan: * MRI of the brain revealed subacute infarct in bilateral thalamus, right bigger than left, extending to the midbrain on the left. * We will add Plavix 75 mg and continue aspirin. * 2-D echo showed EF 55-60%, left ventricular wall thickness is normal. No obvious embolic source * CTA of head and neck showed no significant stenosis of the vertebrobasilar system. I again reviewed CTA of head and neck with Dr. Henderson, who agreed there is no significant stenosis. * Hemoglobin A1c pending, fasting lipid panel showed total cholesterol 96, LDL 31, HDL 30 and triglycerides 173. * Continue statins. * PT OT.
--- NOTE | 2019-10-29 14:57 | MR ---
MR brain without contrast HISTORY: Cerebral vascular accident, altered mental status multiplanar multisequence imaging through the brain Correlation CT brain 10/27/2019 There is restricted diffusion involving the right thalamus, there is increased signal also noted with in the left thalamus on diffusion weighted images and possibly extending into the midbrain, correspon ding hyperintensity noted on the CT, decreased signal present on the T1 data set, there is correspond ing hyperintensity present within the same distribution on inversion recovery and T2-weighted sequenc es. There is no evident hemorrhage or hydrocephalus. Scattered hyperintensities in the deep white mat ter on inversion recovery T2-weighted sequences are noted. There are normal vascular flow voids. Infl ammatory changes present in the right temporal bone, mastoid air cells. Cerebellopontine angles, brigid us callosum, pituitary, cervical medullary junction are within normal limits. Orbits show symmetric a ppearance. There is atrophy noted. IMPRESSION: Findings compatible with subacute infarct right thalamus and possibly left lobe of the AD C map shows a low signal. Age-related changes of atrophy and chronic small vessel ischemia. Inflammat ory changes right temporal bone, mastoid air cells.
[2019-10-29] MEDS: CLOPIDOGREL 75 MG TAB PO SCH (16:34)
[2019-10-29 17:02] LABS: Glucose,Whole Blood 192 mg/dL (75-99)
[2019-10-29 17:27] LABS: Hemoglobin A1C 7.9 % (4.0-6.0)
[2019-10-29 20:25] LABS: Glucose,Whole Blood 170 mg/dL (75-99)
[2019-10-29] MEDS: ATORVASTATIN 80 MG TAB PO SCH (20:38)
[2019-10-29] MEDS: BACLOFEN 10 MG TAB PO SCH (20:38)
[2019-10-30 05:55] LABS: Glucose,Whole Blood 179 mg/dL (75-99)
[2019-10-30] MEDS: SODIUM CHLORIDE 0.9% 1,000 ML IV SCH ×2 (06:01→09:49)
[2019-10-30] MEDS: INSULIN ASPART (NovoLOG) 100 UNIT/ML VIAL SQ SCH ×4 (06:02→22:12)
[2019-10-30] MEDS: PANTOPRAZOLE 40 MG TABLET PO SCH (06:14)
[2019-10-30] MEDS: CLOPIDOGREL 75 MG TAB PO SCH (09:47)
[2019-10-30] MEDS: GLIMEPIRIDE 2 MG TAB PO SCH ×2 (09:47→20:26)
[2019-10-30] MEDS: allopurinoL 100 MG TAB PO SCH ×2 (09:47→20:26)
[2019-10-30] MEDS: ASPIRIN 81 MG PO SCH (09:47)
[2019-10-30] MEDS: amLODIPine 10 MG TAB PO SCH (09:47)
[2019-10-30] MEDS: LOSARTAN 25 MG TAB PO SCH (09:47)
[2019-10-30] MEDS: prednisoLONE ACETATE 1% OPHTH DROPS 5 ML BTL RIGHT EYE SCH (09:47)
[2019-10-30] MEDS: atenoloL 25 MG TAB PO SCH (09:50)
--- NOTE | 2019-10-30 11:40 | CT ---
EXAMINATION TYPE: CT brain wo con DATE OF EXAM: 10/30/2019 COMPARISON: 10/27/2019 HISTORY: Rule out bleed. CT DLP: 1062.4 mGycm Automated exposure control for dose reduction was used. FINDINGS: Low-attenuation within the thalamus bilaterally greater on the right compatible with acute to subacut e infarcts. Dense basal ganglia calcifications. No acute hemorrhage. No midline shift or mass effect. Areas of low-attenuation the white matter are nonspecific but most l ikely in the basis of remote ischemic white matter change. Hyperostosis of the calvarium. Craniocervical junction maintained. Sella turcica has a normal appeara nce. Pineal gland calcifications are seen. Right-sided mastoiditis is stable. Intracranial atheroscle rotic changes. IMPRESSION: EVOLVING SUBACUTE INFARCT INVOLVING THE BILATERAL THALAMUS GREATER ON THE RIGHT WITH NO EVIDENCE OF A CUTE HEMORRHAGE.
[2019-10-30 11:44] LABS: Glucose,Whole Blood 159 mg/dL (75-99)
--- NOTE | 2019-10-30 14:05 | P.PN ---
Subjective Progress Note Date: 10/30/19 Patient is laying comfortably in the bed. Offers no new complaints. He has been having headache today. Per nursing report, and physical therapy, patient is significantly worse today. Not able to stand at all. Objective - Vital Signs Vital signs: Vital Signs Temp 98.1 F 10/30/19 08:00 Pulse 76 10/30/19 08:00 Resp 95 H 10/30/19 08:00 BP 182/84 10/30/19 08:00 Pulse Ox 95 10/30/19 04:00 Intake & Output 10/29/19 10/30/19 10/30/19 18:59 06:59 18:59 Intake Total 930 830 30 Output Total 950 1800 290 Balance -20 -970 -260 Weight 97.6 kg Intake: IV 880 Sodium Chloride 0.9% 1, 880 000 ml @ 110 mls/hr IV . Q9H6M [facility] Rx#:[id number] Intake, IV Titration 50 770 Amount Sodium Chloride 0.9% 1, 770 000 ml @ 110 mls/hr IV . Q9H6M [facility] Rx#:[id number] cefTRIAXone 1 gm In 50 Sodium Chloride 0.9% 50 ml @ 100 mls/hr IVPB Q24HR [facility] Rx#:[id number] Oral 60 30 Output: Urine 950 1800 290 Other: Voiding Method Indwelling Catheter Indwelling Catheter - Exam Patient is slightly somnolent but is alert and awake. Speech is mildly dysarthric, no aphasia. Patient does wake up and participate with examination. Cranial nerves examination revealed chronically decreased vision in the right eye. Her visual macias are full on the left, with no neglect. Right pupil is nonreactive, left pupil is reactive. Both pupils are surgical. Extraocular muscles grossly intact. Face is symmetric and tongue protrudes the midline. On muscle strength testing, patient has left pronator drift. Strength is weaker. Deltoid 4+, biceps 5-, triceps 5, physician assistant surgery 4+, hip flexion 3+/4+, ankle dorsiflexion 5. Patient is more ataxic for [id number] with past-pointing on the left. No ataxia on the right. Sensations are equal bilaterally, no neglect. Gait deferred. - Labs CBC & Chem 7: 10/29/19 06:20 10/29/19 06:20 Labs: Abnormal Lab Results - Last 24 Hours (Table) 10/29/19 10/29/19 10/29/19 Range/Units 06:20 17:01 20:23 POC Glucose (mg/dL) 192 H 170 H (75-99) mg/dL Hemoglobin A1c 7.9 H (4.0-6.0) % 10/30/19 10/30/19 Range/Units 05:52 11:42 POC Glucose (mg/dL) 179 H 159 H (75-99) mg/dL Hemoglobin A1c (4.0-6.0) % Microbiology - Last 24 Hours (Table) 10/27/19 22:54 Blood Culture - Preliminary Blood No Growth after 48 hours 10/28/19 12:15 Urine Culture - Preliminary Urine,Catheterized Gram Neg Bacilli Assessment and Plan Assessment: * Acute ischemic stroke bilateral thalami, extending to left mid brain region. Possible thromboembolism. No obvious embolic source identified. * Hypertension * Diabetes * X tobacco use * Obesity Plan: * Patient appears clinically worse today. Stat computed tomography scan of the head was performed to rule out hemorrhage. It revealed evolving subacute infarct involving the bilateral thalamus greater on the right with no evidence of acute hemorrhage. * Patient's blood pressure has been optimal, running around 180 systolic. No episodes of hypotension noticed in the last 24 hours. Hold blood pressure medication if systolic blood pressure <140. * MRI of the brain revealed subacute infarct in bilateral thalamus, right bigger than left, extending to the midbrain on the left. * Continue dual antiplatelet medication with Plavix 75 mg and aspirin. * 2-D echo showed EF 55-60%, left ventricular wall thickness is normal. No obvious embolic source * CTA of head and neck showed no significant stenosis of the vertebrobasilar system. I again reviewed CTA of head and neck with Dr. Henderson, who agreed there is no significant basilar artery stenosis. Vertebral arteries are patent. * Hemoglobin A1c 7.9, consistent with poorly controlled diabetes. Optimize control of diabetes to target hemoglobin A1c <7.0, fasting lipid panel showed total cholesterol 96, LDL 31, HDL 30 and triglycerides 173. * Continue statins. * PT OT.
[2019-10-30 16:42] LABS: Glucose,Whole Blood 201 mg/dL (75-99)
[2019-10-30] MEDS: Exemestane [Aromasin] 25 MG PO SCH (19:14)
[2019-10-30] MEDS: ATORVASTATIN 80 MG TAB PO SCH (20:26)
[2019-10-30] MEDS: BACLOFEN 10 MG TAB PO SCH (20:26)
[2019-10-30 20:34] LABS: Glucose,Whole Blood 203 mg/dL (75-99)
--- NOTE | 2019-10-30 23:23 | P.PN ---
Subjective Progress Note Date: 10/29/19 Principal diagnosis: Acute CVA Patient is been 74-year-old female with a known history of hypertension, hyperlipidemia, diabetes type 2 ozf-bvclsuu-cuztwibtv, osteoarthritis, diabetic peripheral neuropathy, history of uterine cancer status post radiation and history of multiple orthopedic surgeries all brought to the hospital due to altered mental status. Patient is a poor historian and most of the history was taken from her son at bedside. Patient currently lives by herself. Family went to see her and around 7:30 PM she became more unresponsive unable to recognize the family and felt very weak. . Apparently patient felt very weak yesterday and lightheaded and leaned onto the floor. No bladder bowel incontinence. Patient's family noticed to have left-sided weakness but currently no focal weakness was found. Patient was brought to the hospital for evaluation. Patient did have urinary tract infection with E. coli in September 2019 CT of the head showed no acute intracranial abnormality. CT angiogram showed negative CT angiogram of the neck negative CT angiogram of the brain. Chest x-ray mild fibrotic changes. No definite acute lung disease. No airway change compared to old exam. Laboratory test WBC 14.4, hemoglobin 13.6 and platelets 148 Sodium 141, potassium 4.0, chloride 105, BUN 25 and creatinine 1.1 blood sugar is 205 Alk phos 136 Troponin x1- Urinalysis showed turbid 2+ protein moderate blood, nitrate positive, large leukocyte esterase RBCs 113 and WBCs greater than 182 UDS is positive for opiates patient has been afebrile. 10/29/2019 Patient is currently lying in the bed comfortably. No complaints of chest pain or shortness of breath. Tolerating oral diet. No speech difficulty or slurring is. No fever no chills. MRI of the brain showed subacute infarct in the bilateral thalamus right bigger than left., Extending to the midbrain on the left. Patient is being continued on aspirin and Plavix was added. 2D echo showed normal ejection fraction and no embolic source. CTA of the head and neck showed no significant stenosis. PT OT is following and possible rehab transfer. Objective - Vital Signs Vital signs: Vital Signs Temp 98.3 F 10/29/19 21:33 Pulse 82 10/29/19 21:33 Resp 18 10/29/19 21:33 BP 187/89 10/29/19 21:33 Pulse Ox 95 10/29/19 21:33 Intake & Output 10/29/19 10/29/19 10/30/19 06:59 18:59 06:59 Intake Total 1030 930 Output Total 1680 950 Balance -650 -20 Weight 78 kg Intake: IV 880 880 Sodium Chloride 0.9% 1, 880 880 000 ml @ 110 mls/hr IV . Q9H6M [facility] Rx#:[id number] Intake, IV Titration 50 Amount cefTRIAXone 1 gm In 50 Sodium Chloride 0.9% 50 ml @ 100 mls/hr IVPB Q24HR [facility] Rx#:[id number] Oral 150 Output: Urine 1680 950 Other: Voiding Method Indwelling Catheter Indwelling Catheter - Exam PHYSICAL EXAMINATION: Patient is lying in the bed comfortably, no acute distress, awake alert and oriented. HEENT: Normocephalic. Neck is supple. Pupils reactive. Nostrils clear. Oral cavity is moist. Ears reveal no drainage. Neck reveals no JVD, carotid bruits, or thyromegaly. CHEST EXAMINATION: Trachea is central. Symmetrical expansion. Lung macias clear to auscultation and percussion. CARDIAC: Normal S1, S2 with no gallops. No murmurs ABDOMEN: Soft. Bowel sounds normal. No organomegaly. No abdominal bruits. Extremities: reveal no edema. No clubbing or cyanosis Neurologically awake, alert, oriented x 2-3 with well-coordinated movements. No focal deficits noted Skin: No rash or skin lesions. Psychiatric: Coperative. could not be assesed at this time. Musculoskeletal: No joint swelling or deformity. Normal range of motion. - Labs CBC & Chem 7: 10/29/19 06:20 10/29/19 06:20 Labs: Abnormal Lab Results - Last 24 Hours (Table) 10/29/19 10/29/19 10/29/19 Range/Units 06:10 06:20 06:20 WBC (3.8-10.6) k/uL RDW (11.5-15.5) % Plt Count (150-450) k/uL Neutrophils # (1.3-7.7) k/uL Chloride 109 H (98-107) mmol/L Glucose 160 H (74-99) mg/dL POC Glucose (mg/dL) 153 H (75-99) mg/dL Hemoglobin A1c 7.9 H (4.0-6.0) % Triglycerides 173 H (<150) mg/dL HDL Cholesterol 30 L (40-60) mg/dL 10/29/19 10/29/19 10/29/19 Range/Units 06:20 11:39 17:01 WBC 12.9 H (3.8-10.6) k/uL RDW 16.7 H (11.5-15.5) % Plt Count 126 L (150-450) k/uL Neutrophils # 10.6 H (1.3-7.7) k/uL Chloride (98-107) mmol/L Glucose (74-99) mg/dL POC Glucose (mg/dL) 157 H 192 H (75-99) mg/dL Hemoglobin A1c (4.0-6.0) % Triglycerides (<150) mg/dL HDL Cholesterol (40-60) mg/dL 10/29/19 Range/Units 20:23 WBC (3.8-10.6) k/uL RDW (11.5-15.5) % Plt Count (150-450) k/uL Neutrophils # (1.3-7.7) k/uL Chloride (98-107) mmol/L Glucose (74-99) mg/dL POC Glucose (mg/dL) 170 H (75-99) mg/dL Hemoglobin A1c (4.0-6.0) % Triglycerides (<150) mg/dL HDL Cholesterol (40-60) mg/dL Microbiology - Last 24 Hours (Table) 10/27/19 22:54 Blood Culture - Preliminary Blood No Growth after 24 hours 10/28/19 12:15 Urine Culture - Preliminary Urine,Catheterized Assessment and Plan Assessment: Acute ischemic stroke bilateral thalami Extending to the left midbrain region. Generalized weakness Altered mental status possible metabolic encephalopathy secondary to infection. Acute urinary tract infection Recent urinary tract infection with E. coli in September 2019 Hypertension Hyperlipidemia Diabetes type 2 ogz-kfbexow-oxtkwoikw. a1c 7.9 Osteoarthritis History of uterine cancer in 1997 status post radiation History of gout Multiple orthopedic surgeries DVT prophylaxis with heparin subcu Morbid obesity BMI 42.5 Plan: Patient be continued on ceftriaxone and follow-up urine culture report. Gentle IV hydration and continue the aspirin and current home medications. Neurology is following. c/w asa, plavix and statins. Further recommendations based on the clinical course. Time with Patient: Greater than 30
--- NOTE | 2019-10-30 23:27 | P.PN ---
Subjective Progress Note Date: 10/30/19 Principal diagnosis: Acute CVA Patient is been 74-year-old female with a known history of hypertension, hyperlipidemia, diabetes type 2 ixc-koinkzw-lmkplirtk, osteoarthritis, diabetic peripheral neuropathy, history of uterine cancer status post radiation and history of multiple orthopedic surgeries all brought to the hospital due to altered mental status. Patient is a poor historian and most of the history was taken from her son at bedside. Patient currently lives by herself. Family went to see her and around 7:30 PM she became more unresponsive unable to recognize the family and felt very weak. . Apparently patient felt very weak yesterday and lightheaded and leaned onto the floor. No bladder bowel incontinence. Patient's family noticed to have left-sided weakness but currently no focal weakness was found. Patient was brought to the hospital for evaluation. Patient did have urinary tract infection with E. coli in September 2019 CT of the head showed no acute intracranial abnormality. CT angiogram showed negative CT angiogram of the neck negative CT angiogram of the brain. Chest x-ray mild fibrotic changes. No definite acute lung disease. No airway change compared to old exam. Laboratory test WBC 14.4, hemoglobin 13.6 and platelets 148 Sodium 141, potassium 4.0, chloride 105, BUN 25 and creatinine 1.1 blood sugar is 205 Alk phos 136 Troponin x1- Urinalysis showed turbid 2+ protein moderate blood, nitrate positive, large leukocyte esterase RBCs 113 and WBCs greater than 182 UDS is positive for opiates patient has been afebrile. 10/29/2019 Patient is currently lying in the bed comfortably. No complaints of chest pain or shortness of breath. Tolerating oral diet. No speech difficulty or slurring is. No fever no chills. MRI of the brain showed subacute infarct in the bilateral thalamus right bigger than left., Extending to the midbrain on the left. Patient is being continued on aspirin and Plavix was added. 2D echo showed normal ejection fraction and no embolic source. CTA of the head and neck showed no significant stenosis. PT OT is following and possible rehab transfer. 10/30/2019 Patient is currently lying in the bed comfortably. Denied any complaints of chest pain or shortness of breath. Patient is more lethargic and drowsy today. Repeat CT head was ordered showed evolving subacute infarct involving the bilateral thalamus greater on the right with no evidence of acute hemorrhage. Neurology is following. Blood pressure medications are on hold for permissive hypertension. Continued on aspirin and Plavix and statins. Urine culture showed E. coli. Currently on ceftriaxone which will be continued. Current medications reviewed. Objective - Vital Signs Vital signs: Vital Signs Temp 98.1 F 10/30/19 20:04 Pulse 73 10/30/19 20:04 Resp 18 10/30/19 20:04 BP 170/78 10/30/19 20:04 Pulse Ox 94 L 10/30/19 20:04 Intake & Output 10/30/19 10/30/19 10/31/19 06:59 18:59 06:59 Intake Total 830 150 Output Total 1800 990 Balance -970 -840 Weight 97.6 kg Intake: Intake, IV Titration 770 Amount Sodium Chloride 0.9% 1, 770 000 ml @ 110 mls/hr IV . Q9H6M [facility] Rx#:[id number] Oral 60 150 Output: Urine 1800 990 Other: Voiding Method Indwelling Catheter - Exam PHYSICAL EXAMINATION: Patient is lying in the bed comfortably, no acute distress, awake alert and oriented. lethargic HEENT: Normocephalic. Neck is supple. Pupils reactive. Nostrils clear. Oral cavity is moist. Ears reveal no drainage. Neck reveals no JVD, carotid bruits, or thyromegaly. CHEST EXAMINATION: Trachea is central. Symmetrical expansion. Lung macias clear to auscultation and percussion. CARDIAC: Normal S1, S2 with no gallops. No murmurs ABDOMEN: Soft. Bowel sounds normal. No organomegaly. No abdominal bruits. Extremities: reveal no edema. No clubbing or cyanosis Neurologically awake, alert, oriented x 2-3 with well-coordinated movements. No focal deficits noted Skin: No rash or skin lesions. Psychiatric: Coperative. could not be assesed at this time. Musculoskeletal: No joint swelling or deformity. Normal range of motion. - Labs CBC & Chem 7: 10/29/19 06:20 10/29/19 06:20 Labs: Abnormal Lab Results - Last 24 Hours (Table) 10/30/19 10/30/19 10/30/19 Range/Units 05:52 11:42 16:40 POC Glucose (mg/dL) 179 H 159 H 201 H (75-99) mg/dL 10/30/19 Range/Units 20:32 POC Glucose (mg/dL) 203 H (75-99) mg/dL Microbiology - Last 24 Hours (Table) 10/27/19 22:54 Blood Culture - Preliminary Blood No Growth after 48 hours 10/28/19 12:15 Urine Culture - Preliminary Urine,Catheterized Gram Neg Bacilli
[2019-10-31] MEDS: SODIUM CHLORIDE 0.9% 1,000 ML IV SCH (00:46)
[2019-10-31] MEDS: PANTOPRAZOLE 40 MG TABLET PO SCH (06:20)
[2019-10-31 06:22] LABS: Glucose,Whole Blood 164 mg/dL (75-99)
[2019-10-31 06:48] LABS: Anisocytosis Slight; Basophils # (A) 0.1 k/uL (0-0.2); Basophils % (A) 1 %; Eosinophils # (A) 0.5 k/uL (0-0.7); Eosinophils % (A) 3 %; HCT 45.9 % (34.0-46.0); HGB 14.4 gm/dL (11.4-16.0); Lymphocytes # (A) 1.7 k/uL (1.0-4.8); Lymphocytes % (A) 11 %; MCH 28.8 pg (25.0-35.0); MCHC 31.4 g/dL (31.0-37.0); MCV 91.9 fL (80.0-100.0); Mean Platelet Volume 10.1; Monocytes # (A) 0.7 k/uL (0-1.0); Monocytes % (A) 4 %; Neutrophils # (A) 11.7 k/uL (1.3-7.7); Neutrophils % (A) 79 %; Platelet Count 173 k/uL (150-450); RDW 16.9 % (11.5-15.5); WBC 14.8 k/uL (3.8-10.6)
[2019-10-31 06:58] LABS: Calcium 9.1 mg/dL (8.4-10.2); Potassium 3.6 mmol/L (3.5-5.1)
[2019-10-31] MEDS: INSULIN ASPART (NovoLOG) 100 UNIT/ML VIAL SQ SCH ×2 (08:45→12:49)
[2019-10-31 12:02] LABS: Glucose,Whole Blood 194 mg/dL (75-99)
--- NOTE | 2019-10-31 14:47 | P.PN ---
Subjective Progress Note Date: 10/31/19 Patient appears clinically much worse. Patient very lethargic, not following, arms. Patient not much talking. Please refer to examination below. Telemetry monitoring showing only sinus rhythm. No atrial fibrillation. Objective - Vital Signs Vital signs: Vital Signs Temp 98.3 F 10/31/19 08:00 Pulse 94 10/31/19 12:00 Resp 18 10/31/19 12:00 BP 192/87 10/31/19 08:00 Pulse Ox 92 L 10/31/19 08:00 Intake & Output 10/30/19 10/31/19 10/31/19 18:59 06:59 18:59 Intake Total 150 240 Output Total 990 600 Balance -840 -360 Weight 73.5 kg Intake: Intake, IV Titration 0 Amount Sodium Chloride 0.9% 1, 0 000 ml @ 110 mls/hr IV . Q9H6M [facility] Rx#:[id number] Oral 150 240 Output: Urine 990 600 Other: Voiding Method Indwelling Catheter Indwelling Catheter - Exam Patient appears much more lethargic, less responsive. She spoke very few words, which appeared fine. Patient just with the blank stare. Patient's face is symmetric. Right pupil is nonreactive, left pupil is reactive, which is baseline. Muscle strength testing showed patient has bilateral pronator drift. Her deltoids are 4, Biceps 4+, adjunct faculty instructor 4, triceps 5-4+/4. Patient very weak in the legs, versus not able to participate due to mental status. Cerebellar functions, sensations could not be tested. Patient was noted to have rhythmic twitching of her left upper extremity. Uncertain if ictal in nature. - Labs CBC & Chem 7: 10/31/19 06:27 10/31/19 06:27 Labs: Abnormal Lab Results - Last 24 Hours (Table) 10/30/19 10/30/19 10/31/19 Range/Units 16:40 20:32 06:21 WBC (3.8-10.6) k/uL RDW (11.5-15.5) % Neutrophils # (1.3-7.7) k/uL Chloride (98-107) mmol/L BUN (7-17) mg/dL Glucose (74-99) mg/dL POC Glucose (mg/dL) 201 H 203 H 164 H (75-99) mg/dL 10/31/19 10/31/19 10/31/19 Range/Units 06:27 06:27 12:01 WBC 14.8 H (3.8-10.6) k/uL RDW 16.9 H (11.5-15.5) % Neutrophils # 11.7 H (1.3-7.7) k/uL Chloride 111 H (98-107) mmol/L BUN 18 H (7-17) mg/dL Glucose 180 H (74-99) mg/dL POC Glucose (mg/dL) 194 H (75-99) mg/dL Microbiology - Last 24 Hours (Table) 10/28/19 12:15 Urine Culture - Final Urine,Catheterized Escherichia coli Pseudomonas aeruginosa 10/27/19 22:54 Blood Culture - Preliminary Blood No Growth after 72 hours Assessment and Plan Assessment: * Acute ischemic stroke bilateral thalami, extending to left mid brain region. Possible thromboembolism. No obvious embolic source identified. * Patient clinically much worse today. Rule out venous sinus thrombosis, rule out seizures. * Hypertension * Diabetes * X tobacco use * Obesity Plan: * Patient will undergo stat MRV of the head to rule out venous sinus thrombosis leading to bilateral thalamic strokes. * Stat EEG to rule out any epileptic activity. * Her computed tomography scan of head from yesterday showed evolving subacute infarct involving the bilateral thalamus greater on the right with no evidence of acute hemorrhage. * Patient's blood pressure has been optimal, running around 180 systolic. No episodes of hypotension noticed in the last 24 hours. Hold blood pressure medication if systolic blood pressure <140. * Patient will be started on normal saline 75 mL per hour. * Telemetry monitoring only showing sinus rhythm. No atrial fibrillation. * MRI of the brain revealed subacute infarct in bilateral thalamus, right bigger than left, extending to the midbrain on the left. * Continue dual antiplatelet medication with Plavix 75 mg and aspirin. * 2-D echo showed EF 55-60%, left ventricular wall thickness is normal. No ob vious embolic source * CTA of head and neck showed no significant stenosis of the vertebrobasilar sys tem. I again reviewed CTA of head and neck with Dr. Henderson, who agreed there is no significant basilar artery stenosis. Vertebral arteries are patent. * Hemoglobin A1c 7.9, consistent with poorly controlled diabetes. Optimize control of diabetes to target hemoglobin A1c <7.0, fasting lipid panel showed total cholesterol 96, LDL 31, HDL 30 and triglycerides 173. * Continue statins. * PT OT. * Neurology coverage not available on the weekend. Consider transfer to [facility].
[2019-10-31 16:39] LABS: Glucose,Whole Blood 155 mg/dL (75-99)
--- NOTE | 2019-10-31 16:42 | MR ---
EXAMINATION TYPE: MR brain wo con DATE OF EXAM: 10/31/2019 COMPARISON: 10/29/2019 HISTORY: Patient's clinical condition worsening, Stroke Extension? CONTRAST: Performed utilizing 0 mL intravenous Gadavist gadolinium contrast. TECHNIQUE: Multiplanar, multiecho imaging on a 3.0 Noemi magnet is performed through the brain. Stud y is performed within 24 hours of arrival to the hospital. The craniovertebral junction is normal. The pituitary is normal. Diffusion-weighted imaging is performed. Hyperintensity within the right thalamus and to a lesser de gree the left thalamus is again evident and appears diminished from comparison. Continued hyperintensities are in the periventricular white matter compatible with chronic subcortica l and deep white matter chronic ischemic type changes. Ventricles and sulci are prominent for the patient age. Fluid is within the right mastoid air cells compatible with acute mastoiditis. COMPARISON: No significant interval changes are evident. The area of hyperintense on diffusion may be slightly diminished from comparison remaining findings are stable. IMPRESSIONS: 1. No new extension of ischemic change evident. 2. Periventricular and deep white matter chronic appearing ischemic changes with atrophy 3. Right mastoiditis.
[2019-10-31 16:59] VITALS: RESP 20
--- NOTE | 2019-10-31 17:15 | MR ---
EXAMINATION TYPE: MR MRA/MRV head wo con DATE OF EXAM: 10/31/2019 COMPARISON: Same day MRI brain HISTORY: Patient's clinical condition worsening, Stroke Extension? Standard multiplanar, multisequence MRI departmental protocol Multiplanar, multisequence images of the intracranial arterial and venous system were acquired. Diffu negar weighted imaging was performed. FINDINGS: MRA: Internal carotid arteries bifurcate normally into A1 and M1 segments. Distal left A1 segment is not well visualized on the reconstructed images but appears patent on the source images. The anterior communicating artery appears to be patent. A2 segments are normal. Right and left posterior communic ating arteries are patent. MRV: Sagittal sinus and straight sinus are patent. Venous tributaries appear normal. No suspicious ve nous anomaly is evident. IMPRESSION: 1. Normal MRA [place]. 2. Normal MRV
[2019-10-31] MEDS ORDERED: levETIRAcetam IV 1,000 MG in SALINE 1 100ML.BAG IVPB STA (17:52)
[2019-10-31 18:31] VITALS: BP 192/90; PULSE 92; TEMP 97.8
[2019-10-31] MEDS: allopurinoL 100 MG TAB PO SCH (18:35)
[2019-10-31] MEDS: amLODIPine 10 MG TAB PO SCH (18:35)
[2019-10-31] MEDS: LOSARTAN 25 MG TAB PO SCH (18:36)
[2019-10-31] MEDS: ASPIRIN 81 MG PO SCH (18:36)
[2019-10-31] MEDS: atenoloL 25 MG TAB PO SCH (18:36)
[2019-10-31] MEDS: GLIMEPIRIDE 2 MG TAB PO SCH (18:36)
[2019-10-31] MEDS: prednisoLONE ACETATE 1% OPHTH DROPS 5 ML BTL RIGHT EYE SCH (18:36)
[2019-10-31] MEDS: CLOPIDOGREL 75 MG TAB PO SCH (18:36)
[2019-10-31] MEDS: Exemestane [Aromasin] 25 MG PO SCH (18:36)
--- NOTE | 2019-10-31 19:54 | EEG ---
ELECTROENCEPHALOGRAM REPORT DATE OF SERVICE: 10/31/2019 PREAMBLE: This is a 74-year-old female who has a history of bilateral thalamic strokes, was noted to have altered mental status with some seizure-like activity. This study is performed to evaluate for any epileptiform activity. EEG FINDINGS: This is a 21-channel portable EEG recording in a patient utilizing 10-20 international system with referential and bipolar montages. The recording starts and continues with the presence of diffuse moderate voltage generalized 2-4 hertz delta activity. Very frequent high-amplitude sharp wave activity is seen in bihemispheric region, often up to 1 hertz. On video monitoring, there was arrhythmic muscle activity noted of extremities, or even the whole body intermittently throughout the study. Different stages of sleep were not seen. Photic driving response was not seen. IMPRESSION: This is an abnormal EEG due to: 1. Background slowing of moderate to severe degree, suggestive of generalized cerebral dysfunction as can be seen with toxic metabolic encephalopathy or due to diffuse structural brain abnormality. 2. Presence of very frequent high-amplitude sharp-wave activity seen in the bihemispheric region. This is suggestive of a underlying cortical irritability and tendency for seizures. 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 Clinical correlation and prolonged EEG are strongly recommended. MMODL / IJN: [id number] / GERTURDE
[2019-11-01] MEDS ORDERED: levETIRAcetam IV 750 MG in SODIUM CHLORIDE 0.9% 100 ML IVPB SCH (09:00)
--- NOTE | 2019-11-03 09:01 | CDI ---
Documentation Clarification Form Date: 11/03/19 From: Anisa Holloway CCS Phone: If you have a question about this query, please contact Lory Noe, [employer] Teacher at [phone] between 8am and 5pm. Admit Date: 10/29/19 Discharge Date:10/31/19 Patient Name: Mary Fleming Visit Number: [id number] ATTENTION: The Clinical Documentation Specialists (CDI) and [facility] Coding Staff appreciate your assistance in clarifying documentation. Please respond to the clarification below the line at the bottom and electronically sign. The CDI & [facility] Coding staff will review the response and follow-up if needed. Please note: Queries are made part of the Legal Health Record. If you have any questions, please contact the author of this message via ITS. Dear Dr. Yeager, Urinary tract infection was documented in the ED, H&P, PNs. H&P, Consult, PNs document: Voiding Method Indwelling Catheter Microbiology indicates catheterized urine. History/Risk Factors: CVA w/ L sided weakness, Encephalopathy, DM, Obesity, HTN Clinical Indicators: UTI WBC: 14.4, 12.9, 14.8 Urine Culture: Escherichia coli-catheterized urine Treatment: Rocephin 1 gm IVPB Q24HR Antibiotics Please document the condition that these clinical indicators signify, whether Present on Admission, and cause if known: Serrano POA-UTI due to indwelling catheter Serrano not POA- UTI not due to catheter Other, please specify Unable to determine Serrano POA-UTI due to indwelling catheter MTDD
--- NOTE | 2019-11-03 09:34 | CDI ---
Documentation Clarification Form Date: 11/03/19 From: Anisa Holloway CCS Phone: If you have a question about this query, please contact Lory Noe, [employer] at [phone] between 8am and 5pm. Admit Date: 10/29/19 Discharge Date:10/31/19 Patient Name: Mary Fleming Visit Number: [id number] ATTENTION: The Clinical Documentation Specialists (CDI) and [facility] Coding Staff appreciate your assistance in clarifying documentation. Please respond to the clarification below the line at the bottom and electronically sign. The CDI & [facility] Coding staff will review the response and follow-up if needed. Please note: Queries are made part of the Legal Health Record. If you have any questions, please contact the author of this message via ITS. Dear Dr. Yeager, Hemoglobin A1c 7.9, consistent with poorly controlled diabetes is documented in the PNs. History/Risk Factors: DM w/retinopathy, DM w/ neuropathy, Obesity, CVA, UTI, HTN Clinical Indicators: Poorly controlled DM Glucose: 205, 160, 180 Treatment: NovoLog SQ, Amaryl 4 mg PO BID In order to capture the severity of Illness and necessary documentation specificity, please clarify: DM Type 2 uncontrolled with hyperglicemia DM Type 2 poorly controlled Other, please specify Unable to Determine Other condition DM Type 2 uncontrolled with hyperglicemia MTDD
--- NOTE | 2019-11-09 23:41 | P.DS ---
Providers Date of admission: 10/29/19 10:26 Expected date of discharge: 10/31/19 Attending physician: Cornelio Yeager MD Consults: 10/27/19 21:37 Consult Physician Routine Consulting Provider: Farhad Villagran Consult Reason/Comments: CVA? Do you want consulting provider notified?: Yes Primary care physician: [facility] Course: discharge diagnosis Acute ischemic stroke bilateral thalami Extending to the left midbrain region. status epilepticus Generalized weakness Altered mental status possible metabolic encephalopathy secondary to infection. Acute urinary tract infection Recent urinary tract infection with E. coli in September 2019 Hypertension Hyperlipidemia Diabetes type 2 dvr-dwafnkz-ugnkbenxd. a1c 7.9 Osteoarthritis History of uterine cancer in 1997 status post radiation History of gout Multiple orthopedic surgeries DVT prophylaxis with heparin subcu Morbid obesity BMI 42.5 Hospital course Patient is been 74-year-old female with a known history of hypertension, hyperlipidemia, diabetes type 2 ypf-pjwdlwe-ebqxtdxxa, osteoarthritis, diabetic peripheral neuropathy, history of uterine cancer status post radiation and history of multiple orthopedic surgeries all brought to the hospital due to altered mental status. Patient is a poor historian and most of the history was taken from her son at bedside. Patient currently lives by herself. Family went to see her and around 7:30 PM she became more unresponsive unable to recognize the family and felt very weak. . Apparently patient felt very weak yesterday and lightheaded and leaned onto the floor. No bladder bowel incontinence. Patient's family noticed to have left-sided weakness but currently no focal weakness was found. Patient was brought to the hospital for evaluation. Patient did have urinary tract infection with E. coli in September 2019 CT of the head showed no acute intracranial abnormality. CT angiogram showed negative CT angiogram of the neck negative CT angiogram of the brain. Chest x-ray mild fibrotic changes. No definite acute lung disease. No airway change compared to old exam. Laboratory test WBC 14.4, hemoglobin 13.6 and platelets 148 Sodium 141, potassium 4.0, chloride 105, BUN 25 and creatinine 1.1 blood sugar is 205 Alk phos 136 Troponin x1- Urinalysis showed turbid 2+ protein moderate blood, nitrate positive, large leukocyte esterase RBCs 113 and WBCs greater than 182 UDS is positive for opiates patient has been afebrile. 10/29/2019 Patient is currently lying in the bed comfortably. No complaints of chest pain or shortness of breath. Tolerating oral diet. No speech difficulty or slurring is. No fever no chills. MRI of the brain showed subacute infarct in the bilateral thalamus right bigger than left., Extending to the midbrain on the left. Patient is being continued on aspirin and Plavix was added. 2D echo showed normal ejection fraction and no embolic source. CTA of the head and neck showed no significant stenosis. PT OT is following and possible rehab transfer. 10/30/2019 Patient is currently lying in the bed comfortably. Denied any complaints of chest pain or shortness of breath. Patient is more lethargic and drowsy today. Repeat CT head was ordered showed evolving subacute infarct involving the bilateral thalamus greater on the right with no evidence of acute hemorrhage. Neurology is following. Blood pressure medications are on hold for permissive hypertension. Continued on aspirin and Plavix and statins. Urine culture showed E. coli. Currently on ceftriaxone which will be continued. 10/31/2019 Patient is more lethargic and clinically worse compared to yesterday. Not much talking. Patient had work-up done including MRI and repeat CT scan showed evolving stroke. Patient had EEG showed moderate to severe background slowing. On video recording the patient was having rhythmic twitching of her extremities on the body. This is suggestive of possible status epilepticus. Patient was started on Keppra thousand milligrams stat and 750 mg IV twice daily. Due to worsening clinical status neurology advised the patient to be transferred to tertiary care facility. I did discuss with and about hospital transporting and given verbal signout to the admitting physician. Patient will be transferred to tertiary care facility for further care. PHYSICAL EXAMINATION: Patient is lying in the bed comfortably, no acute distress, awake alert and oriented. lethargic HEENT: Normocephalic. Neck is supple. Pupils reactive. Nostrils clear. Oral cavity is moist. Ears reveal no drainage. Neck reveals no JVD, carotid bruits, or thyromegaly. CHEST EXAMINATION: Trachea is central. Symmetrical expansion. Lung macias clear to auscultation and percussion. CARDIAC: Normal S1, S2 with no gallops. No murmurs ABDOMEN: Soft. Bowel sounds normal. No organomegaly. No abdominal bruits. Extremities: reveal no edema. No clubbing or cyanosis Neurologically awake, alert, oriented x 1-2 with well-coordinated movements. lethargic and communicating. No focal deficits noted Skin: No rash or skin lesions. Psychiatric: Coperative. could not be assesed at this time. Musculoskeletal: No joint swelling or deformity. Normal range of motion. Vital Signs Temp 98.3 F 10/31/19 08:00 Pulse 94 10/31/19 12:00 Resp 18 10/31/19 12:00 BP 192/87 10/31/19 08:00 Pulse Ox 92 L 10/31/19 08:00 Intake & Output 10/30/19 10/31/19 10/31/19 18:59 06:59 18:59 Intake Total 150 240 Output Total 990 600 Balance -840 -360 Weight 73.5 kg Intake: Intake, IV Titration 0 Amount Sodium Chloride 0.9% 1, 0 000 ml @ 110 mls/hr IV . [facility] Rx#:[id number] Oral 150 240 Output: Urine 990 600 Other: Voiding Method Indwelling Catheter Indwelling Catheter Time taken greater than 35 minutes in patient care and in which greater than 50% was spent on counseling and coordination of care. Patient Condition at Discharge: Critical Plan - Discharge Summary Discharge Rx Participant: No New Discharge Prescriptions: No Action HYDROcodone/APAP 5-325MG [Tok 5-325] 1 tab PO TID PRN PRN Reason: Pain Glimepiride [Amaryl] 4 mg PO BID atenoloL [Tenormin] 25 mg PO QAM metFORMIN HCL [Glucophage] 1,000 mg PO BID amLODIPine [Norvasc] 10 mg PO QAM Pregabalin [Lyrica] 75 mg PO BID Aspirin 81 mg PO DAILY allopurinoL [Zyloprim] 100 mg PO BID Atorvastatin [Lipitor] 80 mg PO HS Baclofen [Lioresal] 20 mg PO HS sitaGLIPtin [Januvia] 100 mg PO QAM Torsemide [Demadex] 20 mg PO DAILY Losartan Potassium 100 mg PO DAILY Exemestane [Aromasin] 25 mg PO DAILY prednisoLONE ACETATE 1% OPHTH [Pred Forte 1%] 1 drops RIGHT EYE DAILY Melatonin 10 mg PO HS PRN PRN Reason: sleep Discharge Medication List Aspirin 81 mg PO DAILY 05/19/15 [History] Glimepiride [Amaryl] 4 mg PO BID 05/19/15 [History] HYDROcodone/APAP 5-325MG [Tok 5-325] 1 tab PO TID PRN 05/19/15 [History] Pregabalin [Lyrica] 75 mg PO BID 05/19/15 [History] allopurinoL [Zyloprim] 100 mg PO BID 05/19/15 [History] amLODIPine [Norvasc] 10 mg PO QAM 05/19/15 [History] atenoloL [Tenormin] 25 mg PO QAM 05/19/15 [History] metFORMIN HCL [Glucophage] 1,000 mg PO BID 05/19/15 [History] Atorvastatin [Lipitor] 80 mg PO HS 11/14/16 [History] Baclofen [Lioresal] 20 mg PO HS 05/07/17 [History] sitaGLIPtin [Januvia] 100 mg PO QAM 05/07/17 [History] Losartan Potassium 100 mg PO DAILY 01/28/18 [History] Torsemide [Demadex] 20 mg PO DAILY 01/28/18 [History] Exemestane [Aromasin] 25 mg PO DAILY 12/24/18 [History] Melatonin 10 mg PO HS PRN 10/27/19 [History] prednisoLONE ACETATE 1% OPHTH [Pred Forte 1%] 1 drops RIGHT EYE DAILY 10/27/19 [History] Follow up Appointment(s)/Referral(s): Tony Ruby DO [Primary Care Provider] - 1-2 days Discharge Disposition: TRANSFER TO [facility]
== END 2019-10-31 19:39 | disposition short-term general hospital (02) | DRG 64 ==
LOC: EC 20:19 → 3SCARD 23:21 → OBSVTOIN 10-29 10:26
PROVIDERS: ADMIT Internal Medicine; ATTEND Internal Medicine
DX: I63.9 Cerebral infarction, unspecified (principal); G93.41 Metabolic encephalopathy; T83.511A Infection and inflammatory reaction due to indwelling urethral catheter, initial encounter; N39.0 Urinary tract infection, site not specified; G81.94 Hemiplegia, unspecified affecting left nondominant side; Z68.41 Body mass index [BMI] 40.0-44.9, adult; H70.001 Acute mastoiditis without complications, right ear; Z11.59 Encounter for screening for other viral diseases; G40.901 Epilepsy, unspecified, not intractable, with status epilepticus; E11.319 Type 2 diabetes mellitus with unspecified diabetic retinopathy without macular edema; E11.42 Type 2 diabetes mellitus with diabetic polyneuropathy; E66.01 Morbid (severe) obesity due to excess calories; E11.65 Type 2 diabetes mellitus with hyperglycemia; L53.9 Erythematous condition, unspecified; H51.8 Other specified disorders of binocular movement; M19.90 Unspecified osteoarthritis, unspecified site; I10 Essential (primary) hypertension; E78.5 Hyperlipidemia, unspecified; K21.9 Gastro-esophageal reflux disease without esophagitis; J30.2 Other seasonal allergic rhinitis; R40.2362 Coma scale, best motor response, obeys commands, at arrival to emergency department; R40.2142 Coma scale, eyes open, spontaneous, at arrival to emergency department; R40.2252 Coma scale, best verbal response, oriented, at arrival to emergency department; I45.10 Unspecified right bundle-branch block; M10.9 Gout, unspecified; B96.20 Unspecified Escherichia coli [E. coli] as the cause of diseases classified elsewhere; Z79.82 Long term (current) use of aspirin; Z79.84 Long term (current) use of oral hypoglycemic drugs; Z79.899 Other long term (current) drug therapy; Z79.811 Long term (current) use of aromatase inhibitors; Z85.42 Personal history of malignant neoplasm of other parts of uterus; Z90.710 Acquired absence of both cervix and uterus; Z98.890 Other specified postprocedural states; Z96.653 Presence of artificial knee joint, bilateral; Z85.3 Personal history of malignant neoplasm of breast; Z92.3 Personal history of irradiation; Z87.891 Personal history of nicotine dependence; Z87.440 Personal history of urinary (tract) infections; Z88.5 Allergy status to narcotic agent
CPT/HCPCS: 36415; 70450; 70496; 70498; 70544; 70551; 71045; 80048; 80053; 80061; 80306; 80320; 80329; 81001; 82140; 82330; 82550; 82553; 83036; 83520; 83605; 83735; 84439; 84443; 84484; 85025; 85610; 85730; 87040; 87077; 87086; 87186; 93005; 93306; 95816; 96365; 96375; 96376; 99285

== ENCOUNTER 2019-11-24 10:55 | Inpatient (IN) | payer MEDICARE ==
[2019-11-24 11:27] LABS: Anisocytosis Moderate; Basophils # (A) 0.1 k/uL (0-0.2); Basophils % (A) 1 %; Eosinophils # (A) 0.3 k/uL (0-0.7); Eosinophils % (A) 3 %; Hypochromasia Slight; Lymphocytes # (A) 1.1 k/uL (1.0-4.8); Lymphocytes % (A) 10 %; MCH 30.1 pg (25.0-35.0); MCHC 31.9 g/dL (31.0-37.0); MCV 94.1 fL (80.0-100.0); Macrocytosis Slight; Mean Platelet Volume 9.9; Monocytes # (A) 0.5 k/uL (0-1.0); Monocytes % (A) 5 %; Neutrophils # (A) 9.2 k/uL (1.3-7.7); Neutrophils % (A) 81 %; Platelet Count 179 k/uL (150-450); RBC 2.08 m/uL (3.80-5.40); RDW 20.6 % (11.5-15.5); WBC 11.3 k/uL (3.8-10.6)
[2019-11-24 11:37] LABS: Calcium 8.4 mg/dL (8.4-10.2); Magnesium 1.8 mg/dL (1.6-2.3); Potassium 3.3 mmol/L (3.5-5.1); Total Bilirubin 0.3 mg/dL (0.2-1.3); Total Protein 5.5 g/dL (6.3-8.2)
[2019-11-24 11:42] LABS: HCT 19.6 % (34.0-46.0)
[2019-11-24 11:43] LABS: HGB 6.3 gm/dL (11.4-16.0)
[2019-11-24 12:05] LABS: INR 0.9 (<1.2); Prothrombin Time 9.5 sec (9.0-12.0)
[2019-11-24 12:22] LABS: Partial Thromboplastin Time 19.9 sec (22.0-30.0)
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
[2019-11-24] MEDS ORDERED: ONDANSETRON 4 MG/2 ML VIAL IVP PRN (12:49)
[2019-11-24] MEDS ORDERED: NALOXONE 0.4 MG/ML 1 ML VIAL IV PRN (12:49)
[2019-11-24] MEDS ORDERED: IPRATROPIUM-ALBUTEROL 3 ML NEB INHALATION PRN (14:52)
[2019-11-24] MEDS ORDERED: ACETAMINOPHEN TAB 325 MG TAB PO PRN (14:52)
[2019-11-24 16:53] LABS: Glucose,Whole Blood 120 mg/dL (75-99)
[2019-11-24] MEDS: SODIUM CHLORIDE 0.9% 1,000 ML IV SCH ×2 (18:02→21:02)
[2019-11-24 18:58] LABS: % Iron Saturation 9.79 (12.00-45.00)
[2019-11-24 20:40] LABS: Glucose,Whole Blood 141 mg/dL (75-99)
[2019-11-24] MEDS: PREGABALIN 75 MG CAP PO SCH (21:02)
[2019-11-24] MEDS: allopurinoL 100 MG TAB PO SCH (21:02)
[2019-11-24] MEDS: prednisoLONE ACETATE 1% OPHTH DROPS 5 ML BTL RIGHT EYE SCH (21:03)
[2019-11-24] MEDS: PANTOPRAZOLE 40 MG/10 ML VIAL IV SCH (21:03)
[2019-11-24] MEDS: ATORVASTATIN 20 MG TAB PO SCH (21:03)
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
[2019-11-25 02:36] LABS: Appearance,Urine Clear (Clear); Bacteria,Urine Many /hpf; Bilirubin,Urine Negative (Negative); Blood,Urine Negative (Negative); Color,Urine Light Yellow; Glucose,Urine (UA) Negative (Negative); Ketones,Urine Negative (Negative); Leukocyte Esterase,Urine Large (Negative); Nitrite,Urine Negative (Negative); PH, Urine 5.5 (5.0-8.0); Protein,Urine Negative (Negative); RBC,Urine 1 /hpf (0-5); Specific Gravity,Urine 1.011 (1.001-1.035); Squamous Epithelial Cell,Urine 1 /hpf (0-4); Urobilinogen,Urine <2.0 mg/dL (<2.0); WBC,Urine 14 /hpf (0-5)
[2019-11-25] MEDS: SODIUM CHLORIDE 0.9% 1,000 ML IV SCH ×3 (04:24→21:11)
[2019-11-25] MEDS ORDERED: HALOPERIDOL LACTATE 5 MG/ML 1 ML VIAL IVP STA (05:17)
[2019-11-25] MEDS: INSULIN ASPART (NovoLOG) 100 UNIT/ML VIAL SQ SCH ×4 (06:23→21:15)
[2019-11-25 06:32] LABS: Calcium 8.4 mg/dL (8.4-10.2); Potassium 3.4 mmol/L (3.5-5.1)
[2019-11-25 06:34] LABS: Anisocytosis Slight; Basophils % (A) 0 %; Eosinophils # (A) 0.4 k/uL (0-0.7); Eosinophils % (A) 3 %; HCT 25.2 % (34.0-46.0); Hypochromasia Slight; Lymphocytes # (A) 1.3 k/uL (1.0-4.8); Lymphocytes % (A) 12 %; MCH 30.4 pg (25.0-35.0); MCHC 31.4 g/dL (31.0-37.0); MCV 96.6 fL (80.0-100.0); Macrocytosis Slight; Mean Platelet Volume 10.3; Monocytes # (A) 0.7 k/uL (0-1.0); Monocytes % (A) 7 %; Neutrophils # (A) 8.6 k/uL (1.3-7.7); Neutrophils % (A) 77 %; Platelet Count 162 k/uL (150-450); RBC 2.61 m/uL (3.80-5.40); WBC 11.2 k/uL (3.8-10.6)
[2019-11-25 06:46] LABS: HGB 7.9 gm/dL (11.4-16.0)
[2019-11-25] MEDS: PREGABALIN 75 MG CAP PO SCH ×2 (08:41→21:15)
[2019-11-25] MEDS: PANTOPRAZOLE 40 MG/10 ML VIAL IV SCH ×2 (08:41→21:42)
[2019-11-25] MEDS: atenoloL 25 MG TAB PO SCH (08:41)
[2019-11-25] MEDS: allopurinoL 100 MG TAB PO SCH ×2 (08:41→21:15)
[2019-11-25] MEDS ORDERED: LOSARTAN 50 MG TAB PO SCH (09:00)
[2019-11-25] MEDS ORDERED: NALOXONE 0.4 MG/ML 1 ML VIAL IV PRN (09:09)
[2019-11-25] MEDS ORDERED: ONDANSETRON 4 MG/2 ML VIAL IVP PRN (09:09)
[2019-11-25 12:12] LABS: Glucose,Whole Blood 209 mg/dL (75-99)
[2019-11-25] MEDS ORDERED: HALOPERIDOL LACTATE 5 MG/ML 1 ML VIAL IVP PRN (13:22)
[2019-11-25 15:05] LABS: Ferritin 62.5 ng/mL (10.0-291.0)
[2019-11-25] MEDS ORDERED: POTASSIUM CHLORIDE ER 20 MEQ TAB.ER PO STA (15:18)
[2019-11-25] MEDS ORDERED: QUEtiapine 25 MG TAB PO PRN (15:19)
--- NOTE | 2019-11-25 16:12 | P.PN ---
Subjective Progress Note Date: 11/25/19 Principal diagnosis: This is a pleasant 74 years old female with past medical history of diabetes mellitus, hypertension, hyperlipidemia, CVA/TIA, primary osteoarthritis, chronic back pain, history of breast cancer, diverticular disease and glaucoma. She was recently discharged from hospital on 10/31/19 about one month ago for acute ischemic stroke involving bilateral thalami extending to the left mid brain region and she was status post epilepticus, and as patient transferred to tertiary care center. Information was taken with the help of the son Mr. Pool at bedside. As per son patient was treated medically at her report and then she was referred to [facility] for rehab, however yesterday patient was noticed blood in her stool and she was complaining of from some epigastric discomfort with no dizziness or chest pain or dyspnea, so patient was referred to the emergency room for low hemoglobin. Vital signs stable, blood pressure on the low normal side 90/55. Hemoglobin on presentation is 6.3, WBC 11.3, platelet is normal, INR is normal 0.9, creatinine is elevated 1.3, baseline 0.7-0.8. Occult blood in stool. In the emergency room she was started on Protonix twice a day and normal saline at 130 milliliters per hour Hold Plavix and aspirin 11/25/2019 Patient is seen and evaluated and follow-up currently sleeping but arousable. Patient became to severely agitated and threatening staff and daughter at the bedside and insisting on going home. Patient was given some Haldol and will use Haldol as needed. Hemoglobin is stable at 7.9 today. Patient was seen and evaluated by GI although family refusing any endoscopic interventions at this time. Patient was on aspirin and Plavix which has been on hold although patient is at high risk for stroke. Patient recently had a stroke and was treated at [facility] and transferred to [facility] for rehab. Will need to discuss treatment plan with son Yrn as he makes the ultimate decisions. Patient is currently maintained on Protonix and will continue at this time. Patient to continue with regular diet. Review of systems: Unable to obtain due to current clinical status Objective - Vital Signs Vital signs: Vital Signs Temp 98.4 F 11/25/19 08:00 Pulse 112 H 11/25/19 08:00 Resp 17 11/25/19 08:00 BP 108/78 11/25/19 08:00 Pulse Ox 97 11/25/19 08:00 Intake & Output 11/24/19 11/25/19 11/25/19 18:59 06:59 18:59 Intake Total 910 650 Output Total 800 800 Balance 910 -150 -800 Weight 96.162 kg 84 kg Intake: Intake, IV Titration 650 Amount Sodium Chloride 0.9% 1, 650 000 ml @ 130 mls/hr IV . [id number] [facility] Rx#:[id number] Oral 600 Blood Product 310 Rc As-1 Unit 310 [id number] Output: Urine 800 800 Other: Voiding Method Bedpan Diaper Toilet Diaper Diaper Incontinent # Voids 1 1 # Bowel Movements 0 - Exam GENERAL: The patient is alert and oriented x1-2, not in any acute distress. Obese HEENT: Pupils are round and equally reacting to light. EOMI. No scleral icterus. No conjunctival pallor. Normocephalic, atraumatic. No pharyngeal erythema. No th yromegaly. CARDIOVASCULAR: S1 and S2 present. No murmurs, rubs, or gallops. PULMONARY: Chest is clear to auscultation, no wheezing or crackles. ABDOMEN: Soft, nontender, nondistended, normoactive bowel sounds. No palpable organomegaly. MUSCULOSKELETAL: No joint swelling or deformity. EXTREMITIES: No cyanosis, clubbing, or pedal edema. NEUROLOGICAL: Gross neurological examination did not reveal any focal deficits. SKIN: No rashes. No petechiae - Labs CBC & Chem 7: 11/25/19 05:43 11/25/19 05:43 Labs: Abnormal Lab Results - Last 24 Hours (Table) 11/24/19 11/24/19 11/24/19 Range/Units 11:11 11:11 11:11 WBC 11.3 H (3.8-10.6) k/uL RBC 2.08 L (3.80-5.40) m/uL Hgb 6.3 L* D (11.4-16.0) gm/dL Hct 19.6 L* (34.0-46.0) % RDW 20.6 H (11.5-15.5) % Neutrophils # 9.2 H (1.3-7.7) k/uL APTT 19.9 L (22.0-30.0) sec Potassium 3.3 L (3.5-5.1) mmol/L Chloride (98-107) mmol/L BUN 81 H (7-17) mg/dL Creatinine 1.30 H (0.52-1.04) mg/dL Glucose 160 H (74-99) mg/dL POC Glucose (mg/dL) (75-99) mg/dL Iron (50-170) ug/dL % Saturation (12.00-45.00) Total Protein 5.5 L (6.3-8.2) g/dL Albumin 3.0 L (3.5-5.0) g/dL Ur Leukocyte Esterase (Negative) Urine WBC (0-5) /hpf Urine Bacteria (None) /hpf Stool Occult Blood (Negative) Crossmatch 11/24/19 11/24/19 11/24/19 Range/Units 11:11 11:11 12:49 WBC (3.8-10.6) k/uL RBC (3.80-5.40) m/uL Hgb (11.4-16.0) gm/dL Hct (34.0-46.0) % RDW (11.5-15.5) % Neutrophils # (1.3-7.7) k/uL APTT (22.0-30.0) sec Potassium (3.5-5.1) mmol/L Chloride (98-107) mmol/L BUN (7-17) mg/dL Creatinine (0.52-1.04) mg/dL Glucose (74-99) mg/dL POC Glucose (mg/dL) (75-99) mg/dL Iron 28 L (50-170) ug/dL % Saturation 9.79 L (12.00-45.00) Total Protein (6.3-8.2) g/dL Albumin (3.5-5.0) g/dL Ur Leukocyte Esterase (Negative) Urine WBC (0-5) /hpf Urine Bacteria (None) /hpf Stool Occult Blood Positive H (Negative) Crossmatch See Detail 11/24/19 11/24/19 11/25/19 Range/Units 16:51 20:38 01:01 WBC (3.8-10.6) k/uL RBC (3.80-5.40) m/uL Hgb (11.4-16.0) gm/dL Hct (34.0-46.0) % RDW (11.5-15.5) % Neutrophils # (1.3-7.7) k/uL APTT (22.0-30.0) sec Potassium (3.5-5.1) mmol/L Chloride (98-107) mmol/L BUN (7-17) mg/dL Creatinine (0.52-1.04) mg/dL Glucose (74-99) mg/dL POC Glucose (mg/dL) 120 H 141 H (75-99) mg/dL Iron (50-170) ug/dL % Saturation (12.00-45.00) Total Protein (6.3-8.2) g/dL Albumin (3.5-5.0) g/dL Ur Leukocyte Esterase Large H (Negative) Urine WBC 14 H (0-5) /hpf Urine Bacteria Many H (None) /hpf Stool Occult Blood (Negative) Crossmatch 11/25/19 11/25/19 Range/Units 05:43 05:43 WBC 11.2 H (3.8-10.6) k/uL RBC 2.61 L (3.80-5.40) m/uL Hgb 7.9 L D (11.4-16.0) gm/dL Hct 25.2 L (34.0-46.0) % RDW 20.0 H (11.5-15.5) % Neutrophils # 8.6 H (1.3-7.7) k/uL APTT (22.0-30.0) sec Potassium 3.4 L (3.5-5.1) mmol/L Chloride 109 H (98-107) mmol/L BUN 55 H (7-17) mg/dL Creatinine (0.52-1.04) mg/dL Glucose 134 H (74-99) mg/dL POC Glucose (mg/dL) (75-99) mg/dL Iron (50-170) ug/dL % Saturation (12.00-45.00) Total Protein (6.3-8.2) g/dL Albumin (3.5-5.0) g/dL Ur Leukocyte Esterase (Negative) Urine WBC (0-5) /hpf Urine Bacteria (None) /hpf Stool Occult Blood (Negative) Crossmatch Microbiology - Last 24 Hours (Table) 11/25/19 01:01 Urine Culture - Preliminary Urine,Voided Assessment and Plan Assessment: Acute GI bleed Acute blood loss anemia Acute kidney injury Recent history of status epilepticus about one month ago, associated with acute ischemic stroke involving bilateral thalami, she was transferred to tertiary care center, was on aspirin and Plavix which are on hold now Hypertension Hyperlipidemia Primary osteoarthritis History of CVA/TIA Chronic back pain History of breast cancer Diverticular disease Obesity with BMI 33 GI prophylaxis: Protonix No code Plan: In to new current medications, management, and symptomatic treatment. Hemoglobin was 7.9 today requiring no transfusion. GI following although family is refusing any endoscopic interventions at this time. Aspirin and Plavix remain on hold. Continue to monitor vital signs and labs closely. Potassium was 3.4 today and will replace, current creatinine is 1.02. Urinalysis was done showing large leukocytes and awaiting cultures. No antibiotics necessary at this time. Need to discuss with Yrn who is her son about treatment plan and further options. Case management and social work following as patient was at [facility] and will likely return there upon discharge. Will repeat a.m. labs. Use Haldol as needed for agitation. Further recommendations to follow.
[2019-11-25 16:29] LABS: Glucose,Whole Blood 258 mg/dL (75-99)
[2019-11-25 20:50] LABS: Glucose,Whole Blood 238 mg/dL (75-99)
[2019-11-25] MEDS: prednisoLONE ACETATE 1% OPHTH DROPS 5 ML BTL RIGHT EYE SCH (21:15)
[2019-11-25] MEDS: ATORVASTATIN 20 MG TAB PO SCH (21:15)
[2019-11-26 06:25] LABS: Glucose,Whole Blood 134 mg/dL (75-99)
[2019-11-26 06:28] LABS: Anisocytosis Moderate; Basophils % (A) 0 %; Eosinophils # (A) 0.4 k/uL (0-0.7); Eosinophils % (A) 5 %; HCT 23.8 % (34.0-46.0); HGB 7.6 gm/dL (11.4-16.0); Hypochromasia Slight; Lymphocytes % (A) 14 %; MCH 30.6 pg (25.0-35.0); MCV 95.8 fL (80.0-100.0); Macrocytosis Slight; Mean Platelet Volume 9.9; Monocytes # (A) 0.5 k/uL (0-1.0); Monocytes % (A) 8 %; Neutrophils # (A) 5.3 k/uL (1.3-7.7); Neutrophils % (A) 72 %; Platelet Count 163 k/uL (150-450); Poikilocytosis Slight; RBC 2.48 m/uL (3.80-5.40); RDW 20.2 % (11.5-15.5); WBC 7.3 k/uL (3.8-10.6)
[2019-11-26] MEDS: INSULIN ASPART (NovoLOG) 100 UNIT/ML VIAL SQ SCH ×3 (06:41→21:48)
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
--- NOTE | 2019-11-26 11:21 | P.PN ---
Subjective Progress Note Date: 11/26/19 Principal diagnosis: Anemia The patient was seen and examined at the bedside. She was sleeping but easily arousable. She was alert and oriented. She denies any nausea or vomiting, abdominal pain, or melena. Discussion was had with her son Yrn yesterday that he and his mother would like conservative medical management. Her WBC 7.3, hemoglobin is stable at 7.6, hematocrit 23.6. Objective - Vital Signs Vital signs: Vital Signs Temp 97.4 F L 11/26/19 04:00 Pulse 91 11/26/19 04:00 Resp 16 11/26/19 04:00 BP 105/50 11/26/19 04:00 Pulse Ox 93 L 11/26/19 04:00 Intake & Output 11/25/19 11/26/19 11/26/19 18:59 06:59 18:59 Intake Total 1080 240 120 Output Total 800 400 Balance 280 240 -280 Weight 85.5 kg Intake: Intake, IV Titration 600 Amount Sodium Chloride 0.9% 1, 600 000 ml @ 75 mls/hr IV . [id number] [facility] Rx#:[id number] Oral 480 240 120 Output: Urine 800 400 Other: Voiding Method Toilet Bedside Commode Diaper Diaper Incontinent # Voids 4 2 # Bowel Movements 0 0 - Exam On physical examination, patient appears comfortable in no apparent distress. HEAD: Normocephalic, atraumatic. EYES: No scleral icterus. No conjunctival injection. MOUTH: No lesions, tongue midline. NECK: Trachea midline, no gross abnormalities. CHEST: Decreased air entry bilaterally, no wheezing or rhonchi appreciated. HEART: S1S2 appreciated. ABDOMEN: Soft, overweight. Bowel sounds are positive. No organomegaly. No guarding or rigidity. No tenderness to palpation. EXTREMITIES: No pedal edema. SKIN: No rashes, no jaundice. NEUROLOGIC: Alert and oriented to person. - Labs CBC & Chem 7: 11/26/19 05:45 11/25/19 05:43 Labs: Abnormal Lab Results - Last 24 Hours (Table) 11/25/19 11/25/19 11/25/19 Range/Units 12:11 16:27 20:31 RBC (3.80-5.40) m/uL Hgb (11.4-16.0) gm/dL Hct (34.0-46.0) % RDW (11.5-15.5) % POC Glucose (mg/dL) 209 H 258 H 238 H (75-99) mg/dL 11/26/19 11/26/19 Range/Units 05:45 06:23 RBC 2.48 L (3.80-5.40) m/uL Hgb 7.6 L (11.4-16.0) gm/dL Hct 23.8 L (34.0-46.0) % RDW 20.2 H (11.5-15.5) % POC Glucose (mg/dL) 134 H (75-99) mg/dL Microbiology - Last 24 Hours (Table) 11/25/19 01:01 Urine Culture - Preliminary Urine,Voided Gram Neg Bacilli Assessment and Plan Assessment: Assessment and Plan (1) Anemia associated with acute blood loss Narrative/Plan: 74-year-old female with multiple medical comorbidities presented to the hospital due to concerns over GI bleeding with melanotic stool noted. Patient is on antiplatelet therapy. She is also reporting some abdominal pain. Overall she is a poor historian due to underlying dementia. She has multiple medical comorbidities and was recently hospitalized for TIA/CVA. Last colonoscopy in 2016 showed diverticulosis, hemorrhoids and polyps. No nausea or vomiting reported. Unknown etiology of symptoms, with possible GI bleed given melanotic stool and falling hemoglobin found to be 6.3 on presentation. Iron studies consistent with iron deficiency anemia. Differential includes peptic ulcer disease, esophagitis, gastritis, AVM or other etiology. Extensive discussion with the patient's son and decision maker Yrn and given her multiple comorbidities including possible new diagnosis of lung cancer they would like to pursue conservative measures. Current Visit: Yes Status: Acute Code(s): D62 - ACUTE POSTHEMORRHAGIC ANEMIA SNOMED Code(s): 304516201 (2) GI bleed Current Visit: Yes Status: Acute Code(s): K92.2 - GASTROINTESTINAL HEMORRHAGE, UNSPECIFIED SNOMED Code(s): 47062137 Plan: Supportive care Diet increased to consistent carbohydrate Continue Protonix therapy Continue to monitor hemoglobin and hematocrit and transfuse as needed Okay for iron supplementation Goals of care must be established with the patient and her son, at this time the patient and her son Yrn are not interested in endoscopic evaluation and would like to continue medical/supportive care given the patient's age and multiple medical comorbidities Recommend only restarting ASA therapy, hold off on dual antiplatelet therapy Thank you for allowing us to participate in the care of the patient The impression and plan of care has been dictated as directed. I performed a history and examination of this patient, discussed the same with the dictator. I agree with the dictator's note ,documented as a scribe. Any additional findings or plans will be noted.
[2019-11-26 11:59] LABS: Glucose,Whole Blood 203 mg/dL (75-99)
[2019-11-26] MEDS: atenoloL 25 MG TAB PO SCH (13:03)
[2019-11-26] MEDS: PREGABALIN 75 MG CAP PO SCH ×2 (13:03→21:48)
[2019-11-26] MEDS: allopurinoL 100 MG TAB PO SCH ×2 (13:03→21:48)
[2019-11-26] MEDS: PANTOPRAZOLE 40 MG/10 ML VIAL IV SCH ×2 (13:03→21:48)
--- NOTE | 2019-11-26 13:35 | P.PN ---
Subjective Progress Note Date: 11/26/19 Principal diagnosis: This is a pleasant 74 years old female with past medical history of diabetes mellitus, hypertension, hyperlipidemia, CVA/TIA, primary osteoarthritis, chronic back pain, history of breast cancer, diverticular disease and glaucoma. She was recently discharged from hospital on 10/31/19 about one month ago for acute ischemic stroke involving bilateral thalami extending to the left mid brain region and she was status post epilepticus, and as patient transferred to tertiary care center. Information was taken with the help of the son Mr. Pool at bedside. As per son patient was treated medically at her report and then she was referred to [facility] for re[facility], however yesterday patient was noticed blood in her stool and she was complaining of from some epigastric discomfort with no dizziness or chest pain or dyspnea, so patient was referred to the emergency room for low hemoglobin. Vital signs stable, blood pressure on the low normal side 90/55. Hemoglobin on presentation is 6.3, WBC 11.3, platelet is normal, INR is normal 0.9, creatinine is elevated 1.3, baseline 0.7-0.8. Occult blood in stool. In the emergency room she was started on Protonix twice a day and normal saline at 130 milliliters per hour Hold Plavix and aspirin 11/25/2019 Patient is seen and evaluated and follow-up currently sleeping but arousable. Patient became to severely agitated and threatening staff and daughter at the bedside and insisting on going home. Patient was given some Haldol and will use Haldol as needed. Hemoglobin is stable at 7.9 today. Patient was seen and evaluated by GI although family refusing any endoscopic interventions at this time. Patient was on aspirin and Plavix which has been on hold although patient is at high risk for stroke. Patient recently had a stroke and was treated at [facility] and transferred to [facility] for rehab. Will need to discuss treatment plan with neftali Pool as he makes the ultimate decisions. Patient is currently maintained on Protonix and will continue at this time. Patient to continue with regular diet. Review of systems: Unable to obtain due to current clinical status 11/26/2019 Patient is seen and evaluated and follow-up and continues to get agitated with staff when aroused and moved. Discussed with neftali Carlson about treatment plan and current plan of care and he stated the plan is to return to [facility] once discharged and will discuss in the outpatient setting about comfort measures. Yrn continues to refuse any endoscopic interventions and is aware of the risks versus benefits of being off aspirin and Plavix. We'll continue to hold aspirin and Plavix per family's wishes. Hemoglobin today is 7.6. Patient did have urinalysis done which is showing preliminary gram-negative bacilli and will await culture finalization and initiate IV ceftriaxone at this time while awaiting for cultures to finalize. Discussed with case management and social work as patient will need authorization for ECF. Will continue to monitor closely. Review of systems: Unable to obtain due to current clinical status. Objective - Vital Signs Vital signs: Vital Signs Temp 97.4 F L 11/26/19 04:00 Pulse 91 11/26/19 04:00 Resp 16 11/26/19 04:00 BP 105/50 11/26/19 04:00 Pulse Ox 93 L 11/26/19 04:00 Intake & Output 11/25/19 11/26/19 11/26/19 18:59 06:59 18:59 Intake Total 1080 240 120 Output Total 800 400 Balance 280 240 -280 Weight 85.5 kg Intake: Intake, IV Titration 600 Amount Sodium Chloride 0.9% 1, 600 000 ml @ 75 mls/hr IV . [id number] [facility] Rx#:[id number] Oral 480 240 120 Output: Urine 800 400 Other: Voiding Method Toilet Bedside Commode Diaper Diaper Incontinent # Voids 4 2 # Bowel Movements 0 0 - Exam GENERAL: The patient is alert and oriented x1-2, not in any acute distress. Lethargic, Obese HEENT: Pupils are round and equally reacting to light. EOMI. No scleral icterus. No conjunctival pallor. Normocephalic, atraumatic. No pharyngeal erythema. No thyromegaly. CARDIOVASCULAR: S1 and S2 present. No murmurs, rubs, or gallops. PULMONARY: Diminished bilaterally with no wheezing or crackles. ABDOMEN: Soft, nontender on palpation, nondistended, normoactive bowel sounds. No palpable organomegaly. MUSCULOSKELETAL: No joint swelling or deformity. EXTREMITIES: No cyanosis, clubbing, or pedal edema. NEUROLOGICAL: Gross neurological examination did not reveal any focal deficits. SKIN: No rashes. No petechiae - Labs CBC & Chem 7: 11/26/19 05:45 11/25/19 05:43 Labs: Abnormal Lab Results - Last 24 Hours (Table) 11/25/19 11/25/19 11/25/19 Range/Units 12:11 16:27 20:31 RBC (3.80-5.40) m/uL Hgb (11.4-16.0) gm/dL Hct (34.0-46.0) % RDW (11.5-15.5) % POC Glucose (mg/dL) 209 H 258 H 238 H (75-99) mg/dL 11/26/19 11/26/19 Range/Units 05:45 06:23 RBC 2.48 L (3.80-5.40) m/uL Hgb 7.6 L (11.4-16.0) gm/dL Hct 23.8 L (34.0-46.0) % RDW 20.2 H (11.5-15.5) % POC Glucose (mg/dL) 134 H (75-99) mg/dL Microbiology - Last 24 Hours (Table) 11/25/19 01:01 Urine Culture - Preliminary Urine,Voided Gram Neg Bacilli Assessment and Plan Assessment: Acute GI bleed Acute blood loss anemia Acute kidney injury Recent history of status epilepticus about one month ago, associated with acute ischemic stroke involving bilateral thalami, she was transferred to tertiary care center, was on aspirin and Plavix which are on hold now Hypertension Hyperlipidemia Primary osteoarthritis History of CVA/TIA Chronic back pain History of breast cancer Diverticular disease Obesity with BMI 33 GI prophylaxis: Protonix No code Plan: Continue current medications, management, and symptomatic treatment. Hemoglobin was 7.6. GI following although family is refusing any endoscopic interventions at this time. Aspirin and Plavix remain on hold. Continue to monitor vital signs and labs closely. Urinalysis was done showing large leukocytes and awaiting cultures. Preliminary culture showing gram-negative bacilli and will initiate IV ceftriaxone while awaiting for cultures to finalize. Discussed with Yrn who is her son about treatment plan and further options and plan is for return to [facility] and they will discuss in the outpatient setting about comfort care measures. Case management and social work following as patient was at [facility] and will likely return there upon discharge. Will repeat a.m. labs. Use Haldol as needed for agitation. Further recommendations to follow. Possible discharge in 24-48 hours.
[2019-11-26 17:02] LABS: Glucose,Whole Blood 209 mg/dL (75-99)
[2019-11-26] MEDS: SODIUM CHLORIDE 0.9% 1,000 ML IV SCH ×2 (17:07→22:50)
[2019-11-26 20:15] LABS: Glucose,Whole Blood 298 mg/dL (75-99)
[2019-11-26] MEDS: ATORVASTATIN 20 MG TAB PO SCH (21:48)
[2019-11-26] MEDS: prednisoLONE ACETATE 1% OPHTH DROPS 5 ML BTL RIGHT EYE SCH (21:48)
[2019-11-26] MEDS: OLANZapine ODT 5 MG TAB PO SCH (21:48)
[2019-11-27 07:25] LABS: Glucose,Whole Blood 168 mg/dL (75-99)
[2019-11-27] MEDS: INSULIN ASPART (NovoLOG) 100 UNIT/ML VIAL SQ SCH ×2 (07:28→12:10)
[2019-11-27 08:17] LABS: Anisocytosis Slight; Basophils % (A) 0 %; Eosinophils # (A) 0.4 k/uL (0-0.7); Eosinophils % (A) 5 %; HCT 26.9 % (34.0-46.0); HGB 8.5 gm/dL (11.4-16.0); Hypochromasia Slight; Lymphocytes % (A) 12 %; MCH 30.1 pg (25.0-35.0); MCHC 31.8 g/dL (31.0-37.0); MCV 94.6 fL (80.0-100.0); Macrocytosis Slight; Mean Platelet Volume 10.9; Monocytes # (A) 0.7 k/uL (0-1.0); Monocytes % (A) 8 %; Neutrophils # (A) 6.1 k/uL (1.3-7.7); Neutrophils % (A) 73 %; Platelet Count 150 k/uL (150-450); Poikilocytosis Slight; RBC 2.84 m/uL (3.80-5.40); RDW 19.8 % (11.5-15.5); WBC 8.3 k/uL (3.8-10.6)
[2019-11-27 09:01] LABS: Polychromasia Present
[2019-11-27] MEDS: OLANZapine ODT 5 MG TAB PO SCH ×2 (10:39→11:04)
[2019-11-27] MEDS: PANTOPRAZOLE 40 MG/10 ML VIAL IV SCH ×2 (10:39→11:04)
[2019-11-27] MEDS: allopurinoL 100 MG TAB PO SCH ×2 (10:39→11:04)
[2019-11-27] MEDS: atenoloL 25 MG TAB PO SCH (10:40)
[2019-11-27] MEDS: PREGABALIN 75 MG CAP PO SCH ×2 (10:40→11:04)
[2019-11-27 11:32] LABS: Glucose,Whole Blood 272 mg/dL (75-99)
[2019-11-27] MEDS: SODIUM CHLORIDE 0.9% 1,000 ML IV SCH (12:10)
[2019-11-27 12:11] VITALS: BP 139/77; PULSE 101; RESP 16; TEMP 97.9
--- NOTE | 2019-11-27 12:45 | P.DS ---
Providers Date of admission: 11/24/19 12:49 Expected date of discharge: 11/27/19 Attending physician: Chuy Mueller Primary care physician: Morgan Parra [facility] Course: Final diagnosis Acute GI bleed Acute blood loss anemia Acute kidney injury Recent history of status epilepticus about one month ago, associated with acute ischemic stroke involving bilateral thalami, she was transferred to tertiary care center Asymptomatic bacteriuria Hypertension Hyperlipidemia Primary osteoarthritis History of CVA/TIA Chronic back pain History of breast cancer Diverticular disease Obesity with BMI 33 GI prophylaxis Discharge disposition Patient is being discharged in a stable condition with guarded prognosis to [facility] with hospice. Patient will follow-up with primary care provider at the [facility] facility upon discharge. Total time taken is greater than 35 minutes. History of present illness This is a 74-year-old female who was recently admitted with abdominal discomfort and noted to have blood in the stool at the [facility] and was being closely monitored. Patient recently had a stroke and had been on aspirin and Plavix and these have been discontinued. Patient was seen and evaluated by GI recommending possible endoscopic intervention although family is refusing. Discussed with the son Yrn at length about risks versus benefits of discontinuing the aspirin and Plavix and they are wishing to proceed with hospice at the [facility]. They do not want to resume the aspirin and Plavix at this time. They are aware of the possibility of recurrent stroke and clinical deterioration. They have met with [facility] and are agreeable at this time. Upon admission patient had a urinalysis done with the cultures finalizing showing Pseudomonas aeruginosa although is most likely asymptomatic bacteriuria as patient is denying any symptoms of dysuria and has not had a white count or fever. Patient is refusing antibiotics at this time. Family is aware. Currently no reports of chest pain, shortness of breath, or palpitations. Patient is afebrile. No reports of nausea or vomiting and patient is tolerating diet. Patient continues to have very poor oral intake but denies any abdominal discomfort at this time. Patient is incontinent with a brief and denies any dysuria or pain with urination. Patient will be going to [facility] today. On exam vital signs are stable. Temp is 97.9F, pulse is 101, respirations are 16, blood pressure is 139/77, oxygen saturation is 99% on room air. Cardio S1, S2 are muffled. Respiratory system shows diminished breath sounds at the bases with no wheezing or rhonchi noted. Abdomen is soft and obese, and nontender. Nervous system shows diffuse weakness. Please refer to medication reconciliation sheet for a list of medications. Patient Condition at Discharge: Fair Plan - Discharge Summary Discharge Rx Participant: No New Discharge Prescriptions: New QUEtiapine [SEROquel] 25 mg PO HS PRN tab PRN Reason: Agitation Continue atenoloL [Tenormin] 25 mg PO QAM allopurinoL [Zyloprim] 100 mg PO BID sitaGLIPtin [Januvia] 100 mg PO DAILY Exemestane [Aromasin] 25 mg PO DAILY prednisoLONE ACETATE 1% OPHTH [Pred Forte 1%] 1 drops RIGHT EYE HS Ipratropium-Albuterol Nebulize [Duoneb 0.5 mg-3 mg/3 ml Soln] 3 ml INHALATION RT-Q6H PRN PRN Reason: Shortness Of Breath/WHEEZING INSULIN LISPRO (humaLOG) [humaLOG] See Protocol SQ ACHS Acetaminophen [Tylenol] 325 mg PO Q4H PRN PRN Reason: Pain L.acidoph,Paracasei, B.lactis [Probiotic] 2 cap PO BID metFORMIN HCL 1,000 mg PO BID Lansoprazole [Prevacid] 15 mg PO DAILY Atorvastatin [Lipitor] 20 mg PO HS Pregabalin [Lyrica] 75 mg PO BID #6 cap Discontinued amLODIPine [Norvasc] 10 mg PO QAM Aspirin 81 mg PO DIRECTED Losartan Potassium 100 mg PO DAILY hydroCHLOROthiazide 50 mg PO DAILY Clopidogrel Bisulfate [Plavix] 75 mg PO DIRECTED Discharge Medication List allopurinoL [Zyloprim] 100 mg PO BID 05/19/15 [History] atenoloL [Tenormin] 25 mg PO QAM 05/19/15 [History] sitaGLIPtin [Januvia] 100 mg PO DAILY 05/07/17 [History] Exemestane [Aromasin] 25 mg PO DAILY 12/24/18 [History] prednisoLONE ACETATE 1% OPHTH [Pred Forte 1%] 1 drops RIGHT EYE HS 10/27/19 [History] Acetaminophen [Tylenol] 325 mg PO Q4H PRN 11/24/19 [History] Atorvastatin [Lipitor] 20 mg PO HS 11/24/19 [History] INSULIN LISPRO (humaLOG) [humaLOG] See Protocol SQ ACHS 11/24/19 [History] Ipratropium-Albuterol Nebulize [Duoneb 0.5 mg-3 mg/3 ml Soln] 3 ml INHALATION RT-Q6H PRN 11/24/19 [History] L.acidoph,Paracasei, B.lactis [Probiotic] 2 cap PO BID 11/24/19 [History] Lansoprazole [Prevacid] 15 mg PO DAILY 11/24/19 [History] metFORMIN HCL 1,000 mg PO BID 11/24/19 [History] Pregabalin [Lyrica] 75 mg PO BID #6 cap 11/27/19 [Rx] QUEtiapine [SEROquel] 25 mg PO HS PRN tab 11/27/19 [Rx] Follow up Appointment(s)/Referral(s): Morgan Parra MD [Primary Care Provider] - 1-2 days Activity/Diet/Wound Care/Special Instructions: Patient is going to [facility] Activity as tolerated Continue current diet Continue to monitor blood sugars before meals at bedtime and treat accordingly Patient to continue with hospice Aspirin and Plavix have been discontinued and risks and benefits have thoroughly been discussed with family as per their wishes Discharge Disposition: TRANSFER TO SNF/ECF
--- NOTE | 2019-11-27 13:34 | CDI ---
Documentation Clarification Form Date: 11/27/2019 01:27:03 PM From: Daina Redd CCS, CCDS Admit Date: 11/24/2019 12:49:00 PM Patient Name: Mary Fleming Visit Number: [id number] Discharge Date: ATTENTION: The Clinical Documentation Specialists (CDI) and [facility] Coding Staff appreciate your assistance in clarifying documentation. Please respond to the clarification below the line at the bottom and electronically sign. The CDI & [facility] Coding staff will review the response and follow-up if needed. Please note: Queries are made part of the Legal Health Record. If you have any questions, please contact the author of this message via ITS. Dr. Chuy Mueller: Per the 11/24 Attending Progress Note: "Potassium was 3.4 today and will replace." History/Risk Factors: Hypertension, Hyperlipidemia, Primary Osteoarthritis, CVA, Chronic back pain, Breast Cancer, Diverticular disease, Obesity with BMI 33. Clinical indicators: Patient present to the ED on 11/23 with Acute GI Bleed, Acute blood loss anemia & NATHAN. Abnormal LAB 11/23: K 3.3*. 11/24: 3.4* Treatment on admission: Patient's Plavix, Aspirin & Metformin on hold. Continuous IV Protonix. Clinical significance of diagnostic testing and treatment CANNOT be assumed or coded without physician documentation of significance if any. Please clarify what abnormal laboratory signifies: Unable to determine Other, please specify (Last Revision: December 2016) not sure what the question is. MTDD
== END 2019-11-27 15:46 | DRG 378 ==
LOC: EC 10:55 → 3SCARD 12:49 → 5NMEDONC 11-26 21:06
PROVIDERS: ADMIT Internal Medicine; ATTEND Internal Medicine
PROC: 30233N1 Transfusion of Nonautologous Red Blood Cells into Peripheral Vein, Percutaneous Approach (ICD-10-PCS; principal; 2019-11-24)
DX: K92.1 Melena (principal); D62 Acute posthemorrhagic anemia; N17.9 Acute kidney failure, unspecified; D50.9 Iron deficiency anemia, unspecified; E11.40 Type 2 diabetes mellitus with diabetic neuropathy, unspecified; E66.9 Obesity, unspecified; Z68.33 Body mass index [BMI] 33.0-33.9, adult; E78.5 Hyperlipidemia, unspecified; F03.90 Unspecified dementia, unspecified severity, without behavioral disturbance, psychotic disturbance, mood disturbance, and anxiety; G89.29 Other chronic pain; G40.909 Epilepsy, unspecified, not intractable, without status epilepticus; I10 Essential (primary) hypertension; I69.311 Memory deficit following cerebral infarction; R45.1 Restlessness and agitation; K57.90 Diverticulosis of intestine, part unspecified, without perforation or abscess without bleeding; M19.91 Primary osteoarthritis, unspecified site; R32 Unspecified urinary incontinence; R82.71 Bacteriuria; Z79.811 Long term (current) use of aromatase inhibitors; Z79.82 Long term (current) use of aspirin; Z79.84 Long term (current) use of oral hypoglycemic drugs; Z79.899 Other long term (current) drug therapy; Z82.49 Family history of ischemic heart disease and other diseases of the circulatory system; Z85.3 Personal history of malignant neoplasm of breast; Z85.42 Personal history of malignant neoplasm of other parts of uterus; Z87.442 Personal history of urinary calculi; Z87.891 Personal history of nicotine dependence; Z90.710 Acquired absence of both cervix and uterus; Z96.653 Presence of artificial knee joint, bilateral; H40.9 Unspecified glaucoma; Z98.84 Bariatric surgery status; Z98.42 Cataract extraction status, left eye; Z98.41 Cataract extraction status, right eye; M54.9 Dorsalgia, unspecified; Z86.010 Personal history of colon polyps; K21.9 Gastro-esophageal reflux disease without esophagitis; Z87.440 Personal history of urinary (tract) infections; M10.9 Gout, unspecified; Z91.81 History of falling; Z66 Do not resuscitate; Z88.5 Allergy status to narcotic agent; R91.8 Other nonspecific abnormal finding of lung field; Z92.3 Personal history of irradiation
CPT/HCPCS: 36415; 36430; 80048; 80053; 81001; 82272; 82550; 82607; 82728; 82746; 83540; 83550; 83735; 84484; 85025; 85610; 85730; 86850; 86900; 86901; 86920; 87077; 87086; 87186; 93005; 99285

== ENCOUNTER → 2019-12-29 | Outpatient (CLI) | payer MEDICARE ==
--- NOTE | 2019-12-30 08:57 | MM ---
Reason for exam: additional evaluation requested from prior study. Last mammogram was performed 3 months ago. History: Patient is postmenopausal, has history of breast cancer at age 71, has history of high-risk lesion on a previous biopsy at age 71, and has history of endometrial cancer at age 51. Family history of breast cancer in 2 maternal aunts at age 70, breast cancer in daughter at age 50, and breast cancer in maternal aunt at age 50. Benign US biopsy breast VAD RT of the right breast, January 06, 2019. Lumpectomy of the right breast, June 08, 2017. 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 High risk US biopsy breast VAD RT of the right breast, November 20, 2016. Taking antineoplastic for 3 years. Physical Findings: Nurse did not find any significant physical abnormalities on exam. MG 3D Diag Mammo W/Cad JADIEL Bilateral CC and MLO view(s) were taken. Prior study comparison: September 26, 2019, right breast MG 3d diag mammo w/cad RT. January 06, 2019, right breast MG diagnostic mammo RT wo CAD. There are scattered fibroglandular densities. Post lumpectomy changes in the right breast upper outer quadrant is stable. No significant new findings when compared with previous films. These results were verbally communicated with the patient and result sheet given to the patient on 12/29/19. ASSESSMENT: Benign, BI-RAD 2 RECOMMENDATION: Routine screening mammogram of both breasts in 1 year.
== END | disposition home or self-care (01) ==
LOC: RADMAMWWP 13:38
PROVIDERS: ATTEND Radiology Radiation Oncology
DX: C50.411 Malignant neoplasm of upper-outer quadrant of right female breast (principal); Z17.0 Estrogen receptor positive status [ER+]
CPT/HCPCS: 77066; G0279; 77062